=== PATIENT | female | born 1935 | race Caucasian/White ===

== ENCOUNTER 2016-10-28 09:03 | Emergency (ER) | payer MEDICARE, OTHER ==
[2016-10-28] MEDS ORDERED: NORMAL SALINE 1000 ML 1,000 ML IV ONE (10:27)
--- NOTE | 2016-10-28 10:31 | ER Document Report ---
ED General - General Chief Complaint: General Weakness Stated Complaint: DIFFICULTY BREATHING Time Seen by Provider: 10/28/16 10:08 Mode of Arrival: Medic Information source: [facility], [facility] Records Notes: This is an 81-year-old female with a history of hypertension and diabetes and chronic back pain who presents for subjective fevers and chills and generalized malaise. Of note she had a spinal stimulator placed on Monday (4 days ago) as a trial to assist with chronic back pain. She states that she was placed on prophylactic antibiotics 3 days prior to this. The day after her procedure she began to feel poorly. The next day, Monday, she experienced subjective fevers and chills. She is scheduled to have her spinal implant removed today however she felt too poorly to make it to the clinic. She denies chest pain or shortness of breath. No cough or congestion. Denies focal abdominal pain. Denies dysuria. - Related Data Allergies/Adverse Reactions: No Known Allergies Allergy (Verified 10/28/16 10:14) Past Medical History - Social History Smoking Status: Unknown if Ever Smoked Family History: Reviewed & Not Pertinent - Past Medical History Cardiac Medical History: Reports: Hx Hypertension - medicated Denies: Hx Coronary Artery Disease, Hx Heart Attack Pulmonary Medical History: Reports: Hx Pneumonia Denies: Hx Asthma, Hx Bronchitis, Hx COPD Neurological Medical History: Denies: Hx Cerebrovascular Accident, Hx Seizures Endocrine Medical History: Reports: Hx Diabetes Mellitus Type 2 GI Medical History: Denies: Hx Hepatitis, Hx Hiatal Hernia, Hx Ulcer Musculoskeltal Medical History: Reports Hx Arthritis - osteoarthritis Infectious Medical History: Denies: Hx Hepatitis Past Surgical History: Denies: Hx Hysterectomy, Hx Mastectomy, Hx Open Heart Surgery, Hx Pacemaker Review of Systems - Review of Systems Constitutional: See HPI EENT: No symptoms reported. denies: Sinus discharge, Throat pain Cardiovascular: No symptoms reported. denies: Chest pain, Palpitations Respiratory: No symptoms reported. denies: Cough, Hurts to breathe, Short of breath Gastrointestinal: See HPI, Nausea. denies: Abdominal pain, Diarrhea, Vomiting Genitourinary: No symptoms reported, See HPI. denies: Burning, Dysuria Musculoskeletal: See HPI Skin: No symptoms reported Hematologic/Lymphatic: No symptoms reported Neurological/Psychological: No symptoms reported Physical Exam - Vital signs Vitals: Resp Pulse Ox 22 H 97 10/28/16 09:18 10/28/16 09:18 - Notes Notes: PHYSICAL EXAMINATION: GENERAL: elderly female, alert and conversant, no acute distress but appears to not feel well HEAD: Atraumatic, normocephalic. EYES: Pupils equal round and reactive to light, extraocular movements intact, sclera anicteric, conjunctiva are normal. ENT: nares patent, oropharynx clear without exudates. Mucous membranes tachy NECK: Normal range of motion, supple without lymphadenopathy LUNGS: Breath sounds clear to auscultation bilaterally and equal. No wheezes rales or rhonchi. HEART: Regular rate and rhythm without murmurs ABDOMEN: Soft, obese, nontender, normoactive bowel sounds. No guarding, no rebound. No masses appreciated. EXTREMITIES: Normal range of motion NEUROLOGICAL: Cranial nerves grossly intact. Motor strength +5/5 bilateral upper and lower extremities. No gross sensory deficits appreciated PSYCH: Normal mood, normal affect. SKIN: Warm, Dry, normal turgor, no rashes or lesions noted. Spinal implant site c/d/i without erythema or induration Course - Re-evaluation Re-evalutation: 10/28/16 13:48 Patient states that she feels much better after the IV fluids. Her labs and exam are very reassuring. Dr. Pena of anesthesiology from [place] [facility] did evaluate the patient in the ER regarding her spinal stimulator and the leads were removed at the bedside. Patient has follow-up already arranged with the pain clinic. She is appropriate for discharge at this time. Strict return precautions were discussed. - Vital Signs Vital signs: Temp Pulse Resp BP Pulse Ox 98.1 F 78 20 124/75 96 10/28/16 14:09 10/28/16 14:09 10/28/16 14:09 10/28/16 14:09 10/28/16 14:09 - Laboratory Result Diagrams: 10/28/16 09:49 10/28/16 09:49 Laboratory results interpreted by me: 10/28/16 10/28/16 10/28/16 09:49 09:49 10:34 RBC 5.81 H Hgb 16.3 H Hct 49.6 H RDW 14.7 H Lymphocytes % 12.4 L Monocytes % 14.3 H BUN 23 H Est GFR ( Amer) 50 L Est GFR (Non-Af Amer) 41 L Glucose 186 H POC Glucose Urine Protein 100 H Urine Ascorbic Acid 40 H 10/28/16 10:41 RBC Hgb Hct RDW Lymphocytes % Monocytes % BUN Est GFR ( Amer) Est GFR (Non-Af Amer) Glucose POC Glucose 149 H Urine Protein Urine Ascorbic Acid - EKG Interpretation by Me Additional EKG results interpreted by me: 10/28/16 11:04 EKG at 1055 shows normal sinus rhythm with a rate of 89. There is poor R-wave progression. No ST segment elevation or depression. Discharge - Discharge Clinical Impression: Viral syndrome, Dehydration Condition: Stable Disposition: HOME, SELF-CARE Additional Instructions: Your blood work and exam today show no significant abnormalities. Rest this weekend and drink plenty of fluids. Follow up as scheduled next week with [facility]. Return to the ER for fever or any worsening symptoms or concerns. Referrals: MAICO VALLEJO MD [Primary Care Provider] - Follow up in 3-5 days
--- NOTE | 2016-10-28 11:03 | EKG REPORT ---
SEVERITY:- ABNORMAL ECG - SINUS RHYTHM PROBABLE LEFT ATRIAL ABNORMALITY LEFT ANTERIOR FASCICULAR BLOCK BORDERLINE R WAVE PROGRESSION, ANTERIOR LEADS : Confirmed by: Cindy Kaufman MD 28-Oct-2016 11:02:29
--- NOTE | 2016-10-28 11:05 | RADIOLOGY REPORT (SQ) ---
EXAM DESCRIPTION: CHEST PA/LAT COMPLETED DATE/TIME: 10/28/2016 10:52 am REASON FOR STUDY: fevers, malaise COMPARISON: March 2011 EXAM PARAMETERS: NUMBER OF VIEWS: two views TECHNIQUE: Digital Frontal and Lateral radiographic views of the chest acquired. RADIATION DOSE: NA LIMITATIONS: none FINDINGS: LUNGS AND PLEURA: No opacities, masses or pneumothorax. No pleural effusion. MEDIASTINUM AND HILAR STRUCTURES: No masses or contour abnormalities. HEART AND VASCULAR STRUCTURES: Heart normal size. No evidence for failure. BONES: No acute findings. HARDWARE: Stimulator device is identified in the lower thoracic spine which was not present on the pr evious study OTHER: No other significant finding. IMPRESSION: NO SIGNIFICANT RADIOGRAPHIC FINDING IN THE CHEST. TECHNICAL DOCUMENTATION: JOB ID: [id number] [employer]- All Rights Reserved
[2016-10-28 11:10] LABS: ABSOLUTE BASOPHILS # (AUTO) 0.1 10^3/uL (0.0-0.2); ABSOLUTE EOSINOPHILS # (AUTO) 0.1 10^3/uL (0.0-0.6); ABSOLUTE MONOCYTES (AUTO) 1.2 10^3/uL (0.1-1.4); ABSOLUTE NEUT (AUTO) 5.8 10^3/uL (1.7-8.2); ALANINE AMINOTRANSFERASE 40 U/L (9-52); ALBUMIN 3.8 g/dL (3.5-5.0); ALKALINE PHOSPHATASE 75 U/L (38-126); ANION GAP 14 (5-19); ASPARTATE AMINO TRANSFERASE 27 U/L (14-36); BASOPHILS % (AUTO) 0.7 % (0-2); BILIRUBIN,DIRECT 0.4 mg/dL (0.0-0.4); BILIRUBIN,TOTAL 0.8 mg/dL (0.2-1.3); BLOOD UREA NITROGEN 23 mg/dL (7-20); CALCIUM 10.2 mg/dL (8.4-10.2); CARBON DIOXIDE 25 mmol/L (22-30); CHLORIDE 99 mmol/L (98-107); CREATINE KINASE 37 U/L (30-135); CREATININE RESULT 1.25 mg/dL (0.52-1.25); EOSINOPHILS % (AUTO) 1.2 % (0-6); GLUCOSE 186 mg/dL (75-110); HEMATOCRIT 49.6 % (36.0-47.0); HEMOGLOBIN 16.3 g/dL (12.0-15.5); HGB HCT DIFFERENCE -0.7; LYMPHOCYTES % (AUTO) 12.4 % (13-45); MEAN CORPUSCULAR HEMOGLOBIN 28.1 pg (27.0-33.4); MEAN CORPUSCULAR HGB CONC 32.9 g/dL (32.0-36.0); MEAN CORPUSCULAR VOLUME 85 fl (80-97); MONOCYTES % (AUTO) 14.3 % (3-13); POTASSIUM 4.9 mmol/L (3.6-5.0); RED BLOOD COUNT 5.81 10^6/uL (3.72-5.28); RED CELL DISTRIBUTION WIDTH 14.7 % (11.5-14.0); SEGMENTED NEUTROPHILS % (AUTO) 71.4 % (42-78); SODIUM 137.5 mmol/L (137-145); TOTAL PROTEIN 6.3 g/dL (6.3-8.2); WHITE BLOOD COUNT 8.1 10^3/uL (4.0-10.5)
[2016-10-28 11:22] LABS: CREATINE KINASE MB 0.73 ng/mL (<4.55); TROPONIN I < 0.012 ng/mL
[2016-10-28 11:47] LABS: APPEARANCE,URINE CLEAR; BILIRUBIN,URINE NEGATIVE (NEGATIVE); GLUCOSE, URINE NEGATIVE (NEGATIVE); KETONES,URINE NEGATIVE (NEGATIVE); PROTEIN,URINE 100 mg/dL (NEGATIVE); URINE SPECIFIC GRAVITY 1.019; UROBILINOGEN,URINE NEGATIVE mg/dL (<2.0)
[2016-10-28 11:48] LABS: LEUKOCYTE ESTERASE,URINE NEGATIVE (NEGATIVE); NITRITE,URINE NEGATIVE (NEGATIVE)
[2016-10-28 12:09] LABS: RBC,URINE 0-1 /HPF
[2016-10-28 14:09] VITALS: BP 124/75
== END 2016-10-28 14:15 | disposition home or self-care (01) ==
LOC: ER 09:03
DX: B34.9 Viral infection, unspecified (principal); E86.0 Dehydration; R53.1 Weakness; R06.02 Shortness of breath; G89.29 Other chronic pain
CPT/HCPCS: 93005; 99285; 96360; 36415; 87040; 82553; 82962; 82550; 85025; 80053; 81001; 84484; 83605; 71020; 93010; J7030

== ENCOUNTER 2016-12-06 07:59 | Day surgery (SDC) | payer MEDICARE, OTHER ==
[2016-12-02 10:58] LABS: APPEARANCE,URINE CLEAR; BILIRUBIN,URINE NEGATIVE (NEGATIVE); GLUCOSE, URINE NEGATIVE (NEGATIVE); KETONES,URINE NEGATIVE (NEGATIVE); LEUKOCYTE ESTERASE,URINE TRACE (NEGATIVE); NITRITE,URINE NEGATIVE (NEGATIVE); PROTEIN,URINE NEGATIVE (NEGATIVE); URINE SPECIFIC GRAVITY 1.003; UROBILINOGEN,URINE NEGATIVE mg/dL (<2.0)
[2016-12-02 10:58] LABS: HEMATOCRIT 43.6 % (36.0-47.0); HEMOGLOBIN 14.1 g/dL (12.0-15.5); HGB HCT DIFFERENCE -1.3; MEAN CORPUSCULAR HEMOGLOBIN 27.5 pg (27.0-33.4); MEAN CORPUSCULAR HGB CONC 32.3 g/dL (32.0-36.0); MEAN CORPUSCULAR VOLUME 85 fl (80-97); RED BLOOD COUNT 5.11 10^6/uL (3.72-5.28); RED CELL DISTRIBUTION WIDTH 14.9 % (11.5-14.0); WHITE BLOOD COUNT 6.7 10^3/uL (4.0-10.5)
[2016-12-02 11:02] LABS: PARTIAL THROMBOPLASTIN TIME 33.1 SEC (23.5-35.8)
[2016-12-02 11:17] LABS: ANION GAP 9 (5-19); BLOOD UREA NITROGEN 17 mg/dL (7-20); CALCIUM 9.8 mg/dL (8.4-10.2); CARBON DIOXIDE 31 mmol/L (22-30); CHLORIDE 100 mmol/L (98-107); CREATININE RESULT 0.75 mg/dL (0.52-1.25); GLUCOSE 91 mg/dL (75-110); POTASSIUM 4.4 mmol/L (3.6-5.0); SODIUM 140.2 mmol/L (137-145)
--- NOTE | 2016-12-02 20:22 | EKG REPORT ---
SEVERITY:- ABNORMAL ECG - SINUS RHYTHM PROBABLE LEFT VENTRICULAR HYPERTROPHY : Confirmed by: Yazan Eaton MD 02-Dec-2016 20:21:11
[~2016-12-06 07:59] MED LIST: CEFAZOLIN 1 GM/D5W RTU 1 GM/50 ML RTUPB IV PRN; LACTATED RINGERS 1000 ML IV PRN; LIDOCAINE 0.5% INJ-PF (5 MG/ML) 50 ML SDV SUBCUT PRN
[2016-12-06] MEDS ORDERED: LIDOCAINE 1% INJ-PF (10 MG/ML) 30 ML SDV ONE ×2 (08:20→10:42)
[2016-12-06] MEDS ORDERED: SODIUM BICARBONATE 8.4% INJ 50 MEQ/50 ML DISP.SYRIN ONE (08:20)
[2016-12-06] MEDS ORDERED: BUPIVACAINE HCL 0.25% /EPINEPHRINE INJ/PF 30 ML SDV ONE (08:20)
[2016-12-06 09:22] LABS: POTASSIUM 3.8 mmol/L (3.6-5.0)
[2016-12-06] MEDS ORDERED: PROPOFOL INJ 200 MG/20 ML VIAL IV ONE (10:10)
[2016-12-06] MEDS ORDERED: MIDAZOLAM 2 MG/2 ML INJ ONE (10:10)
[2016-12-06] MEDS ORDERED: MORPHINE SULFATE 10 MG/ML INJ ONE (10:10)
[2016-12-06] MEDS ORDERED: ACETAMINOPHEN 100 ML IV ONE (10:11)
[2016-12-06] MEDS ORDERED: MEPERIDINE HCL/PF INJ 25 MG/1 ML DISP.SYRIN IV PRN (11:04)
[2016-12-06] MEDS ORDERED: FENTANYL CITRATE INJ/PF 100 MCG/2 ML AMPUL IV PRN ×3 (11:04)
[2016-12-06] MEDS ORDERED: PROMETHAZINE HCL INJ 25 MG/1 ML VIAL IV PRN ×2 (11:04)
[2016-12-06] MEDS ORDERED: DIPHENHYDRAMINE HCL 50 MG/ML VIAL IV PRN (11:04)
[2016-12-06] MEDS ORDERED: OXYCODONE-ACETAMINOPHEN 5-325 MG TABLET PO PRN ×3 (11:04→13:59)
[2016-12-06] MEDS ORDERED: MORPHINE SULFATE 10 MG/ML INJ IV PRN (11:04)
[2016-12-06] MEDS ORDERED: CEFAZOLIN INJ 1 GM VIAL ONE (11:55)
--- NOTE | 2016-12-06 12:49 | OPERATIVE REPORT E ---
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 OPERATION: Surgical implantation of right and left spinal cord stimulating electrodes under fluoroscopic guidance, implantation of programmable rechargeable pulse [employer] generator, fluoroscopy for needle placement, and complex programming. SURGEON: ANGUS PALOMO M.D. ANESTHESIA: MAC AUDIOLOGY ASSISTANT: Dr. Asmita Pena ESTIMATED BLOOD LOSS: 10 mL COMPLICATIONS: None. SPECIMENS REMOVED: None. INDICATIONS: Satisfactory response to outpatient trial of spinal cord stimulation. PROCEDURE: After obtaining informed consent, advising the patient of the risks and benefits including serious neurological injury, bleeding, and infection, paralysis, allergic reaction, , and failure to adequately treat pain as well as potential aggravate pain, she was taken to the operating room and placed comfortably in the prone position. MAC anesthesia was administered. Comfort was assessed visually and verbally. She was prepped with chlorhexidine x2 with appropriate drying time prior to draping. She was evaluated under fluoroscopy and at predetermined sites over the right gluteal region in the midline, incisions were made after local anesthetic was applied, 1% lidocaine with bicarb followed by 0.25% bupivacaine with epinephrine. Sharp and blunt dissection was performed in each region as necessary to create a suitable working space in the lumbar incision as well as a suitable pocket for the battery. Hemostasis was obtained with electrocautery as necessary. The leads were placed as follows. Beginning on the right side, a 6-inch curved Tuohy needle 14 gauge was advanced through a pre-anesthetized region with 1% Lidocaine entering the epidural space with loss resistance to saline technique at the T12-L1 interspace without evidence of heme, cerebrospinal fluid, or paresthesias. Electrode was then placed through this and advanced nicely in the midline. This was repeated on the left side of the second lead. Lateral views were taken to assure satisfactory placement and no damage to the *------*. The leads were then advanced up to the top of T8. Trial stimulation was then initiated and was satisfactory with good stimulation on all desired locations. Pursestrings of 0 [place] were placed around each needle followed by a distal anchor stitch of the same material. Beginning on the left, the Tuohy needle was removed with care being taken not to move the electrode. The electrode eventually did move approximately 1 *------* inferiorly. All pursestrings were secured. The anchors were secured. This procedure was then repeated on the right side. No movement of the electrode was noted at this location. Again, pursestrings were secured followed by the anchors. Both wounds were then copiously irrigated with Betadine-containing irrigation solution. Local anesthesia was applied for tunneling from the generator to the midline incision. The leads were then tunneled to the pocket and connected. Connectivity was tested and impedance was satisfactory. Again the wounds were irrigated and then closed with interrupted inverted 3-0 Vicryl mattress sutures. The skin was taped and glued over the battery pulse generator site and stapled and glued with Dermabond over the midline incision. Telfa dressings were placed over this followed by sponge Tegaderm's. The patient was then taken to the PACU for further postoperative care and monitoring. DICTATING PHYSICIAN: ANGUS PALOMO M.D. [id number] PHY#: [id number] ID: [id number] JOB#: [id number] ACCT: [id number] cc:ANGUS PALOMO M.D. >
[2016-12-06 13:54] VITALS: BP 136/78
[2016-12-06] MEDS ORDERED: ONDANSETRON HCL INJ/PF 4 MG/2 ML SDV IV PRN (14:00)
[2016-12-06] MEDS ORDERED: HYDROCODONE/ACETAMINOPHEN 5-325 MG TABLET PO PRN (14:13)
[2016-12-06] MEDS ORDERED: ONDANSETRON HCL INJ/PF 4 MG/2 ML SDV ONE (14:39)
[2016-12-06] MEDS ORDERED: METOCLOPRAMIDE HCL INJ/PF 10 MG/2 ML SDV ONE (14:39)
[2016-12-06] MEDS ORDERED: GLYCOPYRROLATE INJ 0.4 MG/2 ML VIAL ONE (14:39)
[2016-12-06] MEDS ORDERED: LIDOCAINE 2% INJ-PF (20 MG/ML) 10 ML AMPUL ONE (14:39)
--- NOTE | 2016-12-06 16:28 | RADIOLOGY REPORT (SQ) ---
EXAM DESCRIPTION: THORACOLUMBAR SPINE AP/LAT; NO CHG FLUORO COMPLETED DATE/TIME: 12/06/2016 2:51 pm; 12/06/2016 2:50 pm REASON FOR STUDY: SPINAL STIMULATOR ASSISTED WITH FLUORO IN OR M54.17 RADICULOPATHY, LUMBOSACRAL RE GION Z79.01 CENTRAL SERVICES TECH (CURRENT) USE OF ANTICOAGULANTS Z79.899 OTHER INTERMEDIATE (CURRENT) DRUG THERAP Y COMPARISON: None. FLUOROSCOPY TIME: 2.2 minutes Multiple cine fluoro images saved to PACS. TECHNIQUE: Intra-operative images acquired during surgical procedure to evaluate progress. NUMBER OF IMAGES: Cine fluoroscopic images. LIMITATIONS: None. FINDINGS: Imaging and fluoroscopy during neurostimulator electrode placement by Dr. Matta. Deana brannon see the operative report for further details. IMPRESSION: Intra procedural imaging and fluoro COMMENT: Quality ID [id number]: Final reports for procedures using fluoroscopy that document radiation exp osure indices, or exposure time and number of fluorographic images (if radiation exposure indices are not available) Please consult full operative report of the attending physician for description of the procedure. TECHNICAL DOCUMENTATION: JOB ID: [id number] [employer]- All Rights Reserved
--- NOTE | 2016-12-06 16:28 | RADIOLOGY REPORT (SQ) ---
EXAM DESCRIPTION: THORACOLUMBAR SPINE AP/LAT; NO CHG FLUORO COMPLETED DATE/TIME: 12/06/2016 2:51 pm; 12/06/2016 2:50 pm REASON FOR STUDY: SPINAL STIMULATOR ASSISTED WITH FLUORO IN OR M54.17 RADICULOPATHY, LUMBOSACRAL RE GION Z79.01 RESIN MIXER (CURRENT) USE OF ANTICOAGULANTS Z79.899 OTHER HALF-WAY (CURRENT) DRUG THERAP Y COMPARISON: None. FLUOROSCOPY TIME: 2.2 minutes Multiple cine fluoro images saved to PACS. TECHNIQUE: Intra-operative images acquired during surgical procedure to evaluate progress. NUMBER OF IMAGES: Cine fluoroscopic images. LIMITATIONS: None. FINDINGS: Imaging and fluoroscopy during neurostimulator electrode placement by Dr. Matta. Deana brannon see the operative report for further details. IMPRESSION: Intra procedural imaging and fluoro COMMENT: Quality ID 145: Final reports for procedures using fluoroscopy that document radiation exp osure indices, or exposure time and number of fluorographic images (if radiation exposure indices are not available) Please consult full operative report of the attending physician for description of the procedure. TECHNICAL DOCUMENTATION: JOB ID: [id number] [employer]- All Rights Reserved
== END 2016-12-06 13:35 | disposition home or self-care (01) ==
LOC: OROUT 07:59
PROVIDERS: ATTEND Pain Medicine Interventional Pain Medicine
PROC: 00HU3MZ Insertion of Neurostimulator Lead into Spinal Canal, Percutaneous Approach (ICD-10-PCS; 2016-12-06)
PROC: 0JH70MZ Insertion of Stimulator Generator into Back Subcutaneous Tissue and Fascia, Open Approach (ICD-10-PCS; principal; 2016-12-06 10:30)
DX: M54.17 Radiculopathy, lumbosacral region (principal); M43.17 Spondylolisthesis, lumbosacral region; I10 Essential (primary) hypertension; E11.9 Type 2 diabetes mellitus without complications; M19.90 Unspecified osteoarthritis, unspecified site; Z79.899 Other long term (current) drug therapy; Z79.01 Long term (current) use of anticoagulants; Z79.1 Long term (current) use of non-steroidal anti-inflammatories (NSAID)
CPT/HCPCS: 63685; 63650; 93005; 36415 ×2; 82962; 82947; 84132; 85027; 85610; 85730; 80048; 81001; 72080; 93010; C1820; C1778; C1787; J2250; J3490 ×4; J0690 ×2; J2765; J2270; J2405; J2704; J0131; 300

== ENCOUNTER → 2017-01-30 | Outpatient (CLI) | payer MEDICARE, OTHER ==
[2017-01-30 14:38] LABS: ANION GAP 14 (5-19); BLOOD UREA NITROGEN 17 mg/dL (7-20); CALCIUM 10.3 mg/dL (8.4-10.2); CARBON DIOXIDE 25 mmol/L (22-30); CHLORIDE 100 mmol/L (98-107); CREATININE RESULT 1.06 mg/dL (0.52-1.25); GLUCOSE 164 mg/dL (75-110); MAGNESIUM 2.1 mg/dL (1.6-2.3); POTASSIUM 4.5 mmol/L (3.6-5.0); SODIUM 138.7 mmol/L (137-145)
== END ==
LOC: OD 12:58
PROVIDERS: ATTEND Internal Medicine
DX: I10 Essential (primary) hypertension (principal); I48.91 Unspecified atrial fibrillation
CPT/HCPCS: 36415; 80048; 83735

== ENCOUNTER → 2017-02-09 | Outpatient (CLI) | payer MEDICARE, OTHER ==
[~2017-02-09] MED LIST changes: +AMINOPHYLLINE INJ/PF 250 MG/10 ML SDV IV ONE; -CEFAZOLIN 1 GM/D5W RTU 1 GM/50 ML RTUPB IV PRN; -LACTATED RINGERS 1000 ML IV PRN; -LIDOCAINE 0.5% INJ-PF (5 MG/ML) 50 ML SDV SUBCUT PRN; +REGADENOSON INJ 0.4 MG/5 ML DISP.SYRIN IV ONE
--- NOTE | 2017-02-09 15:03 | DRAGON STRESS TEST REPORT ---
INTRAVENOUS LEXISCAN CARDIOLITE STRESS TEST USING SINGLE PHOTON EMMISION COMPUTERIZED TOMOGRAPHIC. DATE OF PROCEDURE: February 09, 2017 INDICATION : Atrial fibrillation CARDIAC RISK FACTORS: Diabetes, hypertension, family history of CAD RESTING EKG: Sinus rhythm, no baseline ST-T wave changes STRESS EKG: No significant changes noted with LexiScan bolus REASON FOR TERMINATION: Protocol. PROCEDURE REPORT: Baseline heart rate 69 beats per minute with blood pressure of 128/59. Patient had no significant complaints. Heart rate at 2 minutes post bolus 83 with a blood pressure of 149/67. 3 minutes post bolus heart rate 75 with blood pressure of 136/68. No significant EKG changes were noted. Patient had no significant complaints during the procedure or postprocedure. Patient injected with Aminophyllin 75 mg at 3 minutes or later after Lexiscan bolus. CONCLUSIONS: Normal EKG and hemodynamic response to IV LexiScan. NUCLEAR DATA: At rest the patient was given 14.68 millicuries of technetium 99 sestamibi injected intravenously. As per protocol rest gated SPECT images were obtained. Subsequently the patient was given intravenous LexiScan at a dose of 0.4 mg in 5 mL intravenously, followed by flush with normal saline. Subsequently the stress dose of 42.8 millicuries of technetium 99 sestamibi was injected intravenously. As per protocol stress gated images were obtained. NUCLEAR INTERPRETATION: Both raw and processed data were used for interpretation. Visual, qualitative, computer-generated quantitative data was used. There was good myocardial uptake of technetium compound. Motion artifact and soft tissue attenuations were noted. Increased visceral uptake was noted. No definitive areas of transient perfusion defect noted. No definitive areas of fixed perfusion defect or scars noted. EKG gated imaging showed LV EF at 61 %, rest and stress gated EF similar visually. T. I D. ratio was 1.14. Lung heart ratio noted to be within normal limits 0.28. No significant extracardiac and abnormal radiotracer activities were noted. RV free wall uptake was noted to be WNL. IMPRESSION: Also refer to comments under nuclear interpretation. Also test results needs to be interpreted in the context of pretest probability. 1. There is no definitive scintigraphic evidence of LexiScan induced myocardial ischemia. 2. There is no definitive scintigraphic evidence of myocardial infarction/scar. 3. EKG gated imaging shows left ventricular ejection fraction of approximately 61 %. 4. Clinical correlation requested as occasionally single vessel disease or balanced ischemia could be missed. In approximately 10% of the cases Lexiscan may not cause adequate vasodilatory stress. RECOMMENDATIONS: Aggressive risk factor modification, medical therapy. Clinical correlation with echocardiogram derived ejection fraction. Inability to exercise by itself can lead to increased cardiovascular event risks. Consider cardiology consultation and or follow-up if clinically indicated. I AM AVAILABLE FOR CARDIOLOGY CONSULTATION AND FOLLOWUP IF REQUESTED BY PMD Jacqueline Hernandez M.D., KIRSTIE Pitch Worker global human resources director, Board certified in cardiovascular diseases, Nuclear cardiology, Echocardiography Cardiac CT and cardiac MRI Ph. [phone] [facility]
== END ==
LOC: RAD 07:50
PROVIDERS: ATTEND Internal Medicine Cardiovascular Disease
DX: I48.2 Chronic atrial fibrillation (principal); I10 Essential (primary) hypertension; E11.9 Type 2 diabetes mellitus without complications; Z82.49 Family history of ischemic heart disease and other diseases of the circulatory system
CPT/HCPCS: 93017; 78452; A9500; J2785; J0280; Q9969

== ENCOUNTER 2017-04-14 09:40 | Emergency (ER) | payer MEDICARE, OTHER ==
--- NOTE | 2017-04-14 10:04 | ER Document Report ---
ED Medical Screen (RME) - General Chief Complaint: Chest Pain Stated Complaint: CHEST PAIN Time Seen by Provider: 04/14/17 09:55 Notes: Patient is here to be seen because she thinks she is in atrial fibrillation again. She has a history of recent diagnosis of atrial fibrillation for which she is on Eliquis and Toprol-XL. Today, she says she is feeling sweaty and clammy and having some chest pressure. Denies any chest pain. Denies any nausea or vomiting. No recent illness. No fevers. PMH: Hypertension, no other heart disease. TRAVEL OUTSIDE OF THE [place] IN LAST 30 DAYS: No - Related Data Allergies/Adverse Reactions: No Known Allergies Allergy (Verified 04/14/17 09:53) Past Medical History - Social History Chew tobacco use (# tins/day): No Frequency of alcohol use: None Drug Abuse: None Family history: Reviewed & Not Pertinent - Past Medical History Cardiac Medical History: Reports: Hx Hypertension Denies: Hx Coronary Artery Disease, Hx Heart Attack Pulmonary Medical History: Denies: Hx Asthma, Hx Bronchitis, Hx COPD, Hx Pneumonia Neurological Medical History: Denies: Hx Cerebrovascular Accident, Hx Seizures Endocrine Medical History: Reports: Hx Diabetes Mellitus Type 2 Renal/ Medical History: Denies: Hx Peritoneal Dialysis GI Medical History: Denies: Hx Hepatitis, Hx Hiatal Hernia, Hx Ulcer Musculoskeltal Medical History: Reports Hx Arthritis - RIGHT BIG TOE & HANDS, POSS rheumatoid Infectious Medical History: Denies: Hx Hepatitis Past Surgical History: Reports: Hx Appendectomy, Hx Cholecystectomy. Denies: Hx Hysterectomy, Hx Mastectomy, Hx Open Heart Surgery, Hx Pacemaker - Immunizations Hx Diphtheria, Pertussis, Tetanus Vaccination: Yes Physical Exam - Vital signs Vitals: Temp Pulse Resp BP Pulse Ox 97.6 F 92 20 119/67 97 04/14/17 09:52 04/14/17 09:52 04/14/17 09:52 04/14/17 09:52 04/14/17 09:52 Course - Vital Signs Vital signs: Temp Pulse Resp BP Pulse Ox 97.6 F 92 20 119/67 97 04/14/17 09:52 04/14/17 09:52 04/14/17 09:52 04/14/17 09:52 04/14/17 09:52
--- NOTE | 2017-04-14 10:27 | ER Document Report ---
ED Cardiac - General Chief Complaint: Chest Pain Stated Complaint: CHEST PAIN Time Seen by Provider: 04/14/17 09:55 Notes: This is a 81-year-old female was not feeling well this morning. Randolph her heart racing. History of atrial fibrillation. On Eliquis. Taking metoprolol 50 mg of the extended release version a day. Followed by Dr. Santiago with cardiology. Randolph a little clammy. Did her blood sugar test and it was slightly elevated at 180. She states that normally is quite low in the low 100s. Denies any dysuria or discomfort. Denies any chest pain, shortness of breath, abdominal pain or other symptoms at this time. Actually she states that she feels much better and that her heart is not racing at this time. TRAVEL OUTSIDE OF THE [place] IN LAST 30 DAYS: No - HPI Patient complains to provider of: Palpitations Use of: denies: Alcohol, Amphetamines, Bath salts, Caffeine, Cocaine, Decongestants, Other Was the onset of pain: Sudden Is the pain a: Chronic problem Chest pain location: No: Substernal, Axillary, Back, Pleuritic, Under breast, Other Quality of pain: None Chest pain radiation location: denies: Left jaw, Left arm, Left shoulder, Right jaw, Right arm, Right shoulder, Back, Neck, None Severity now: None Severity at worst: Mild Pain level currently: 0 Cardiac risk factors: Diabetes, Hypertension Associated symptoms: None Exacerbated by: Denies - Related Data Allergies/Adverse Reactions: No Known Allergies Allergy (Verified 04/14/17 09:53) Home Medications: Current Home Medications Apixaban [Eliquis 5 mg Tablet] 5 mg PO DAILY 04/14/17 [History] Celecoxib [Celebrex 200 mg Capsule] 200 mg PO DAILY 04/14/17 [History] Diazepam 5 mg PO PRN PRN 04/14/17 [History] Duloxetine HCl [Cymbalta] 30 mg PO DAILY 04/14/17 [History] Glimepiride 4 mg PO DAILY 04/14/17 [History] Hydrocodone Bit/Acetaminophen [Xodol 7.5-300 mg Tablet] 7.5 mg PO DAILY [History] Metoprolol Succinate [Toprol Xl 50 mg Tab.sr] 50 mg PO DAILY 04/14/17 [History] Naloxegol Oxalate [Movantik 25 mg Tablet] 25 mg PO DAILY 04/14/17 [History] Omeprazole 20 mg PO DAILY 04/14/17 [History] Valsartan/Hydrochlorothiazide [Valsartan-Hctz 160-12.5 mg Tab] 160 mg PO DAILY 04/14/17 [History] Past Medical History - General Information source: Patient - Social History Smoking Status: Never Smoker Chew tobacco use (# tins/day): No Frequency of alcohol use: None Drug Abuse: None Lives with: Family Family History: Reviewed & Not Pertinent Patient has suicidal ideation: No Patient has homicidal ideation: No - Past Medical History Cardiac Medical History: Reports: Hx Hypertension Denies: Hx Coronary Artery Disease, Hx Heart Attack Pulmonary Medical History: Denies: Hx Asthma, Hx Bronchitis, Hx COPD, Hx Pneumonia Neurological Medical History: Denies: Hx Cerebrovascular Accident, Hx Seizures Endocrine Medical History: Reports: Hx Diabetes Mellitus Type 2 Renal/ Medical History: Denies: Hx Peritoneal Dialysis GI Medical History: Denies: Hx Hepatitis, Hx Hiatal Hernia, Hx Ulcer Musculoskeltal Medical History: Reports Hx Arthritis - RIGHT BIG TOE & HANDS, POSS rheumatoid Infectious Medical History: Denies: Hx Hepatitis Past Surgical History: Reports: Hx Appendectomy, Hx Cholecystectomy. Denies: Hx Hysterectomy, Hx Mastectomy, Hx Open Heart Surgery, Hx Pacemaker - Immunizations Hx Diphtheria, Pertussis, Tetanus Vaccination: Yes Hx Pneumococcal Vaccination: 05/22/11 Review of Systems - Review of Systems Constitutional: No symptoms reported EENT: No symptoms reported Cardiovascular: Palpitations Respiratory: No symptoms reported Gastrointestinal: No symptoms reported Genitourinary: No symptoms reported Female Genitourinary: No symptoms reported Musculoskeletal: No symptoms reported Skin: No symptoms reported Hematologic/Lymphatic: No symptoms reported Neurological/Psychological: No symptoms reported Physical Exam - Vital signs Vitals: Temp Pulse Resp BP Pulse Ox 97.6 F 92 20 119/67 97 04/14/17 09:52 04/14/17 09:52 04/14/17 09:52 04/14/17 09:52 04/14/17 09:52 Interpretation: Normal - General General appearance: Appears well, Alert - HEENT Head: Normocephalic, Atraumatic Eyes: Normal Pupils: PERRL - Respiratory Respiratory status: No respiratory distress Chest status: Nontender Breath sounds: Normal Chest palpation: Normal - Cardiovascular Rhythm: Regular Heart sounds: Normal auscultation Murmur: No - Abdominal Inspection: Normal Distension: No distension Bowel sounds: Normal Tenderness: Nontender Organomegaly: No organomegaly - Back Back: Normal, Nontender - Extremities General upper extremity: Normal inspection, Nontender, Normal color, Normal ROM , Normal temperature General lower extremity: Normal inspection, Nontender, Normal color, Normal ROM , Normal temperature, Normal weight bearing. No: Shannon's sign - Neurological Neuro grossly intact: Yes Cognition: Normal Orientation: AAOx4 Jen Coma Scale Eye Opening: Spontaneous Jen Coma Scale Verbal: Oriented Jen Coma Scale Motor: Obeys Commands Jen Coma Scale Total: 15 Speech: Normal Motor strength normal: LUE, RUE, LLE, RLE Sensory: Normal - Psychological Associated symptoms: Normal affect, Normal mood - Skin Skin Temperature: Warm Skin Moisture: Dry Skin Color: Normal Course - Re-evaluation Re-evalutation: 04/14/17 14:32 Patient has a slightly elevated BNP. Denies any significant shortness of breath , chest pain, lower extremities edema, orthopnea or dyspnea on exertion. Called patient's drilling foreman. Give the nurse at the drilling foreman's office the information that workup was completed today. Will start patient on some Lasix. Advised that if patient begins to have any worsening symptoms she should return immediately. We will hold off on making any other medication changes other than 20 mg of Lasix at this time. 04/14/17 14:32 - Vital Signs Vital signs: Temp Pulse Resp BP Pulse Ox 97.6 F 92 22 H 142/77 H 92 04/14/17 09:52 04/14/17 09:52 04/14/17 13:16 04/14/17 13:16 04/14/17 13:16 - Laboratory Result Diagrams: 04/14/17 10:15 04/14/17 12:20 Laboratory results interpreted by me: 04/14/17 04/14/17 04/14/17 10:15 12:08 12:20 RBC 5.39 H RDW 14.7 H Carbon Dioxide 32 H BUN 23 H Glucose 60 L NT-Pro-B Natriuret Pep Total Protein 5.8 L Ur Leukocyte Esterase MODERATE H Urine Ascorbic Acid 40 H 04/14/17 12:20 RBC RDW Carbon Dioxide BUN Glucose NT-Pro-B Natriuret Pep 1220 H Total Protein Ur Leukocyte Esterase Urine Ascorbic Acid - EKG Interpretation by [facility] EKG shows normal: Intervals, QRS Complexes Rhythm: A.Fib, PVC's [place]/QRS: Left axis deviation Voltage: Consistant with LVH Discharge - Discharge Clinical Impression: Atrial fibrillation Qualifiers: Atrial fibrillation type: unspecified Qualified Code(s): I48.91 - Unspecified atrial fibrillation Congestive heart failure Qualifiers: Congestive heart failure type: unspecified congestive heart failure type Congestive heart failure chronicity: unspecified congestive heart failure chronicity Qualified Code(s): I50.9 - Heart failure, unspecified Disposition: HOME, SELF-CARE Additional Instructions: Atrial Fibrillation Atrial fibrillation is an abnormal heart rhythm, caused by irregular electrical circuits in the upper heart chamber. It can be caused by heart valve disease, hardening of the arteries, or metabolic problems such as thyroid disease, or may occur without a clear cause. Atrial fibrillation may occur only occasionally, or may be chronic. Atrial fibrillation often results in a very fast heart rate, with palpitations, lightheadedness, and shortness of breath. Treatment is to slow the abnormally fast rate, and to convert the rhythm back to normal, if possible. Many patients stay in atrial fibrillation for years without symptoms or complications. Your doctor will decide whether you can be converted back to a normal heart rhythm. Contact the doctor or emergency medical system at once if you develop chest pain, shortness of breath, or severe lightheadedness, or if you develop any disturbance of consciousness, problems with speech, or localized weakness. Please return immediately if you develop any worsening symptoms or concerns. Developed chest pain, shortness of breath, tachycardia which means her heart is racing fast, fever, chills, sweats or anything else please return Prescriptions: Furosemide [Lasix 20 mg Tablet] 20 mg PO QAM #30 tablet Potassium Chloride 10 meq PO DAILY 30 Days #30 tablet.er Referrals: MAICO VALLEJO MD [Primary Care Provider] - Follow up as needed
[2017-04-14 10:37] LABS: ABSOLUTE BASOPHILS # (AUTO) 0.1 10^3/uL (0.0-0.2); ABSOLUTE EOSINOPHILS # (AUTO) 0.2 10^3/uL (0.0-0.6); ABSOLUTE LYMPHOCYTES (AUTO) 2.1 10^3/uL (0.5-4.7); ABSOLUTE MONOCYTES (AUTO) 0.8 10^3/uL (0.1-1.4); ABSOLUTE NEUT (AUTO) 6.4 10^3/uL (1.7-8.2); BASOPHILS % (AUTO) 1.1 % (0-2); EOSINOPHILS % (AUTO) 2.1 % (0-6); HEMATOCRIT 45.7 % (36.0-47.0); HEMOGLOBIN 15.2 g/dL (12.0-15.5); HGB HCT DIFFERENCE -0.1; LYMPHOCYTES % (AUTO) 21.9 % (13-45); MEAN CORPUSCULAR HEMOGLOBIN 28.2 pg (27.0-33.4); MEAN CORPUSCULAR HGB CONC 33.2 g/dL (32.0-36.0); MEAN CORPUSCULAR VOLUME 85 fl (80-97); MONOCYTES % (AUTO) 8.3 % (3-13); RED BLOOD COUNT 5.39 10^6/uL (3.72-5.28); RED CELL DISTRIBUTION WIDTH 14.7 % (11.5-14.0); SEGMENTED NEUTROPHILS % (AUTO) 66.6 % (42-78); WHITE BLOOD COUNT 9.6 10^3/uL (4.0-10.5)
--- NOTE | 2017-04-14 10:47 | RADIOLOGY REPORT (SQ) ---
EXAM DESCRIPTION: CHEST SINGLE VIEW COMPLETED DATE/TIME: 04/14/2017 10:32 am REASON FOR STUDY: Chest pressure and irregular heartbeat COMPARISON: October 2016 EXAM PARAMETERS: NUMBER OF VIEWS: One view. TECHNIQUE: Single frontal radiographic view of the chest acquired. RADIATION DOSE: NA LIMITATIONS: None. FINDINGS: LUNGS AND PLEURA: No opacities, masses or pneumothorax. No pleural effusion. MEDIASTINUM AND HILAR STRUCTURES: No masses. Contour normal. HEART AND VASCULAR STRUCTURES: Heart normal in size. Normal vasculature. BONES: No acute findings. HARDWARE: Electrodes related to a dorsal column stimulator are identified projected at the level of t he mid thoracic spine. OTHER: No other significant finding. IMPRESSION: NO ACUTE RADIOGRAPHIC FINDING IN THE CHEST. TECHNICAL DOCUMENTATION: JOB ID: [id number] [employer]- All Rights Reserved
[2017-04-14 12:56] LABS: ALANINE AMINOTRANSFERASE 42 U/L (9-52); ALKALINE PHOSPHATASE 93 U/L (38-126); ANION GAP 11 (5-19); ASPARTATE AMINO TRANSFERASE 20 U/L (14-36); BILIRUBIN,DIRECT 0.3 mg/dL (0.0-0.4); BILIRUBIN,TOTAL 0.4 mg/dL (0.2-1.3); BLOOD UREA NITROGEN 23 mg/dL (7-20); CALCIUM 9.6 mg/dL (8.4-10.2); CARBON DIOXIDE 32 mmol/L (22-30); CHLORIDE 101 mmol/L (98-107); CREATINE KINASE 38 U/L (30-135); CREATININE RESULT 0.85 mg/dL (0.52-1.25); GLUCOSE 60 mg/dL (75-110); POTASSIUM 3.8 mmol/L (3.6-5.0); SODIUM 143.9 mmol/L (137-145); TOTAL PROTEIN 5.8 g/dL (6.3-8.2)
[2017-04-14 13:06] LABS: CREATINE KINASE MB 1.58 ng/mL (<4.55); TROPONIN I < 0.012 ng/mL
[2017-04-14 13:14] LABS: APPEARANCE,URINE SLIGHTLY-CLOUDY; BILIRUBIN,URINE NEGATIVE (NEGATIVE); GLUCOSE, URINE NEGATIVE (NEGATIVE); KETONES,URINE NEGATIVE (NEGATIVE); LEUKOCYTE ESTERASE,URINE MODERATE (NEGATIVE); NITRITE,URINE NEGATIVE (NEGATIVE); PROTEIN,URINE NEGATIVE (NEGATIVE); URINE SPECIFIC GRAVITY 1.023; UROBILINOGEN,URINE NEGATIVE mg/dL (<2.0)
[2017-04-14] MEDS ORDERED: FUROSEMIDE 20 MG TABLET PO ONE (14:31)
--- NOTE | 2017-04-14 14:41 | EKG REPORT ---
SEVERITY:- ABNORMAL ECG - ATRIAL FIBRILLATION, V-RATE 75-125 VENTRICULAR PREMATURE COMPLEX LEFT ANTERIOR FASCICULAR BLOCK CONSIDER LEFT VENTRICULAR HYPERTROPHY : Confirmed by: Cindy Kaufman MD 14-Apr-2017 14:41:35
[2017-04-14 15:49] VITALS: BP 137/84
== END 2017-04-14 15:52 | disposition home or self-care (01) ==
LOC: ER 09:40
DX: I50.9 Heart failure, unspecified (principal); I48.91 Unspecified atrial fibrillation; I49.3 Ventricular premature depolarization; R07.9 Chest pain, unspecified; R00.2 Palpitations; Z79.01 Long term (current) use of anticoagulants; Z79.899 Other long term (current) drug therapy
CPT/HCPCS: 93005; 99285; 36415; 82553; 82550; 85025; 80053; 81001; 84484; 83880; 71010; 93010; A9270

== ENCOUNTER 2018-04-07 07:38 | Inpatient (IN) | payer MEDICARE, OTHER ==
[2018-04-07] MEDS ORDERED: DIPHENHYDRAMINE HCL 50 MG/ML VIAL IV ONE (08:03)
[2018-04-07] MEDS ORDERED: FAMOTIDINE INJ/PF 20 MG/2 ML SDV IV ONE (08:03)
[2018-04-07] MEDS ORDERED: METHYLPREDNISOLONE INJ 125 MG/2 ML SDV IV ONE (08:03)
--- NOTE | 2018-04-07 08:08 | ER Document Report ---
ED General - General Chief Complaint: Allergic Reaction Stated Complaint: POSSIBLE ALLERGIC REACTION Time Seen by Provider: 04/07/18 07:53 TRAVEL OUTSIDE OF THE [place] IN LAST 30 DAYS: No - HPI Patient complains to provider of: Allergic reaction Notes: Patient coming in with diffuse hives swelling around her bilateral orbits ongoing for greater than 24 hours. Patient states last night took 50 mg of Benadryl with minimal relief came into the ER for further evaluation. Patient with recent knee surgery on new medications Mobic oxycodone. Patient states a history of hypertension diabetes atrial fibrillation. Patient is currently on Eliquis. Patient denies any shortness of breath and is speaking to me in complete sentences at this time. Patient also is controlling her oral secretions with no drooling. Next be no obvious distress. Patient otherwise denies any new medications soaps activities pets - Related Data Allergies/Adverse Reactions: Sulfa (Sulfonamide Antibiotics) Allergy (Verified 04/07/18 08:12) Past Medical History - Social History Smoking Status: Unknown if Ever Smoked Family History: Reviewed & Not Pertinent - Past Medical History Cardiac Medical History: Reports: Hx Hypertension Denies: Hx Coronary Artery Disease, Hx Heart Attack Pulmonary Medical History: Denies: Hx Asthma, Hx Bronchitis, Hx COPD, Hx Pneumonia Neurological Medical History: Denies: Hx Cerebrovascular Accident, Hx Seizures Endocrine Medical History: Reports: Hx Diabetes Mellitus Type 2 Renal/ Medical History: Denies: Hx Peritoneal Dialysis GI Medical History: Denies: Hx Hepatitis, Hx Hiatal Hernia, Hx Ulcer Musculoskeletal Medical History: Reports Hx Arthritis - RIGHT BIG TOE & HANDS, POSS rheumatoid Infectious Medical History: Denies: Hx Hepatitis Past Surgical History: Reports: Hx Appendectomy, Hx Cholecystectomy. Denies: Hx Hysterectomy, Hx Mastectomy, Hx Open Heart Surgery, Hx Pacemaker - Immunizations Hx Diphtheria, Pertussis, Tetanus Vaccination: Yes Hx Pneumococcal Vaccination: 05/22/11 Review of Systems - Review of Systems Constitutional: No symptoms reported EENT: No symptoms reported Cardiovascular: No symptoms reported Respiratory: No symptoms reported Gastrointestinal: No symptoms reported Genitourinary: No symptoms reported Female Genitourinary: No symptoms reported Musculoskeletal: No symptoms reported Skin: Rash Hematologic/Lymphatic: No symptoms reported Neurological/Psychological: No symptoms reported -: Yes All other systems reviewed and negative Physical Exam - Vital signs Vitals: Temp Pulse Resp BP Pulse Ox 98.2 F 99 18 98/55 L 96 04/07/18 07:48 04/07/18 07:48 04/07/18 07:48 04/07/18 07:48 04/07/18 07:48 Interpretation: Tachycardic - General General appearance: Appears well, Alert - HEENT Head: Normocephalic, Atraumatic Eyes: Other - Swelling around bilateral orbits Conjunctiva: Normal Cornea: Normal Extraocular movements intact: Yes Eyelashes: Normal Pupils: PERRL - Respiratory Respiratory status: No respiratory distress Chest status: Nontender Breath sounds: Normal Chest palpation: Normal - Cardiovascular Rhythm: Irregularly irregular, Tachycardia Heart sounds: Normal auscultation Murmur: No - Abdominal Inspection: Normal Distension: No distension Bowel sounds: Normal Tenderness: Nontender Organomegaly: No organomegaly - Back Back: Normal, Nontender - Extremities General upper extremity: Normal inspection, Nontender, Normal color, Normal ROM , Normal temperature General lower extremity: Normal inspection, Nontender, Normal color, Normal ROM , Normal temperature, Normal weight bearing. No: Shannon's sign - Neurological Neuro grossly intact: Yes Cognition: Normal Orientation: AAOx4 Jen Coma Scale Eye Opening: Spontaneous Jen Coma Scale Verbal: Oriented [place] Coma Scale Motor: Obeys Commands Jen Coma Scale Total: 15 Speech: Normal Motor strength normal: LUE, RUE, LLE, RLE Sensory: Normal - Psychological Associated symptoms: Normal affect, Normal mood - Skin Skin Temperature: Warm Skin Moisture: Dry Skin Color: Normal Notes: Patient with diffuse hives in the inner thigh and inguinal region on the anterior of the abdomen bilateral upper extremities swelling around both orbits ocular motion intact. Course - Re-evaluation Re-evalutation: 04/07/18 08:08 Patient's physical examination consistent with an acute allergic reaction at this time. Patient otherwise looks to be stable and no need for epinephrine at this time. Will continue with Benadryl Solu-Medrol and Pepcid and monitor the patient. 04/07/18 14:46 Place patient on the monitor showed A. fib RVR. Patient had an EKG performed showed heart rate in the 40s. This showed atrial fibrillation. Further evaluation the patient states that she is not taking any of her medications except for Mobic and oxycodone since the knee surgery on March 19. Patient was given an IV dose in order dose of metoprolol with some improvement of her heart rate however continued to be fluctuating between 100 230. Patient's oxygenation also decreased in the upper 80s. Chest x-ray was performed showing no signs of overt CHF. Because patient has been off her medications for some time and waxing and waning of vital signs decision was made to admit the patient to the hospital service of the started back on her home medications and make sure the patient otherwise states stable. Patient agrees this plan at this time discussed with Dr. English hospitalist service will admit the patient diffuse hives have improved after menstruation of Solu-Medrol Benadryl Pepcid 04/07/18 14:47 - Vital Signs Vital signs: Temp Pulse Resp BP Pulse Ox 98.2 F 99 18 98/55 L 96 04/07/18 13:25 04/07/18 13:25 04/07/18 13:25 04/07/18 13:25 04/07/18 13:25 - Laboratory Result Diagrams: 04/07/18 08:05 04/07/18 08:05 Laboratory results interpreted by me: 04/07/18 04/07/18 08:05 08:05 WBC 13.8 H MCH 26.5 L RDW 17.0 H Plt Count 488 H Absolute Neutrophils 10.7 H Glucose 198 H Critical Care Note - Critical Care Note Total time excluding time spent on procedures (mins): 35 Comments: Multiple evaluation A. fib RVR and acute allergic reaction Discharge - Discharge Clinical Impression: Atrial fibrillation with RVR, Acute urticaria, History of CHF (congestive heart failure), History of diabetes Condition: Good Disposition: ADMITTED INPATIENT Admitting Provider: Kristen English Unit Admitted: [facility]
[2018-04-07 08:13] LABS: ABSOLUTE BASOPHILS # (AUTO) 0.1 10^3/uL (0.0-0.2); ABSOLUTE EOSINOPHILS # (AUTO) 0.1 10^3/uL (0.0-0.6); ABSOLUTE LYMPHOCYTES (AUTO) 1.9 10^3/uL (0.5-4.7); ABSOLUTE NEUT (AUTO) 10.7 10^3/uL (1.7-8.2); BASOPHILS % (AUTO) 0.6 % (0-2); EOSINOPHILS % (AUTO) 0.5 % (0-6); HEMATOCRIT 38.5 % (36.0-47.0); HEMOGLOBIN 12.4 g/dL (12.0-15.5); LYMPHOCYTES % (AUTO) 13.7 % (13-45); MEAN CORPUSCULAR HEMOGLOBIN 26.5 pg (27.0-33.4); MEAN CORPUSCULAR HGB CONC 32.2 g/dL (32.0-36.0); MEAN CORPUSCULAR VOLUME 82 fl (80-97); MONOCYTES % (AUTO) 7.4 % (3-13); PLATELET COUNT 488 10^3/uL (150-450); RED BLOOD COUNT 4.68 10^6/uL (3.72-5.28); SEGMENTED NEUTROPHILS % (AUTO) 77.8 % (42-78); TOTAL CELLS COUNTED % (AUTO) 100 %; WHITE BLOOD COUNT 13.8 10^3/uL (4.0-10.5)
[2018-04-07 08:32] LABS: ANION GAP 13 (5-19); BLOOD UREA NITROGEN 15 mg/dL (7-20); CARBON DIOXIDE 25 mmol/L (22-30); CHLORIDE 102 mmol/L (98-107); GLUCOSE 198 mg/dL (75-110); POTASSIUM 4.3 mmol/L (3.6-5.0); SODIUM 140.4 mmol/L (137-145)
[2018-04-07] MEDS ORDERED: METOPROLOL TARTRATE PF/INJ 5 MG/5 ML SDV IV ONE (08:58)
[2018-04-07] MEDS ORDERED: METOPROLOL TARTRATE 25 MG TABLET PO ONE (08:59)
--- NOTE | 2018-04-07 09:57 | EKG REPORT ---
SEVERITY:- ABNORMAL ECG - ATRIAL FIBRILLATION LEFT ANTERIOR FASCICULAR BLOCK LOW VOLTAGE IN FRONTAL LEADS PROBABLE LVH WITH SECONDARY REPOL ABNRM ST DEPRESSION, PROBABLY RATE RELATED BORDERLINE PROLONGED QT INTERVAL : Confirmed by: Jacqueline Hernandez 07-Apr-2018 09:56:20
--- NOTE | 2018-04-07 10:23 | RADIOLOGY REPORT (SQ) ---
EXAM DESCRIPTION: CHEST 2 VIEWS COMPLETED DATE/TIME: 04/07/2018 10:15 am REASON FOR STUDY: sob COMPARISON: 04/14/2017 EXAM PARAMETERS: NUMBER OF VIEWS: two views TECHNIQUE: Digital Frontal and Lateral radiographic views of the chest acquired. RADIATION DOSE: NA LIMITATIONS: none FINDINGS: LUNGS AND PLEURA: No opacities, masses or pneumothorax. No pleural effusion. MEDIASTINUM AND HILAR STRUCTURES: No masses or contour abnormalities. HEART AND VASCULAR STRUCTURES: Heart normal size. No evidence for failure. BONES: No acute findings. HARDWARE: None in the chest. OTHER: Spinal stimulator leads project over the midthoracic spine. IMPRESSION: No acute abnormality of the lungs. No focal airspace opacity. TECHNICAL DOCUMENTATION: JOB ID: [id number] [employer] All Rights Reserved Reading location - IP/workstation name: [email or web address]
[2018-04-07] MEDS ORDERED: METOPROLOL SUCCINATE 50 MG TAB.SR.24H PO SCH (11:15)
[2018-04-07] MEDS ORDERED: FLECAINIDE ACETATE 100 MG TABLET PO SCH ×3 (11:29→22:00)
[2018-04-07] MEDS ORDERED: METOPROLOL TARTRATE 25 MG TABLET PO SCH (11:30)
[2018-04-07] MEDS: METOPROLOL TARTRATE 25 MG TABLET PO SCH ×2 (12:03→21:50)
[2018-04-07] MEDS ORDERED: ACETAMINOPHEN 325 MG TABLET PO PRN (12:14)
[2018-04-07] MEDS ORDERED: APIXABAN 5 MG TABLET PO SCH (12:30)
[2018-04-07] MEDS ORDERED: HYDROCODONE/ACETAMINOPHEN 7.5-325 MG TABLET PO PRN (14:48)
[2018-04-07] MEDS ORDERED: GLUCAGON,HUMAN RECOMB 1 MG INJ IM PRN (14:51)
[2018-04-07] MEDS ORDERED: DEXTROSE 50%-WATER 25 GM/50 ML DISP.SYRIN IV PRN ×2 (14:51)
[2018-04-07] MEDS ORDERED: DEXTROSE 40% GEL 15 GM TUBE PO PRN ×2 (14:51)
[2018-04-07] MEDS: CETIRIZINE 10 MG TABLET PO SCH (14:57)
[2018-04-07] MEDS ORDERED: OXYCODONE HCL IR 5 MG TABLET PO SCH (16:00)
[2018-04-07] MEDS ORDERED: OXYCODONE HCL IR 5 MG TABLET PO PRN (16:24)
--- NOTE | 2018-04-07 17:46 | HISTORY AND PHYSICAL E ---
History and Physical NAME: ARMOND GODINEZ : 1935 AGE: 82Y ADMITTED: 04/07/2018 ROOM: 318 PRIMARY CARE PROVIDER: Dr. Perkins GRAIN ROASTER: Dr. Santiago ORTHOPEDIST: Dr. Eddy with [facility] in [place]. ETHANOL QUALITY LEADER: Dr. Anibal Prado CHIEF COMPLAINT: Possible allergic reaction. HISTORY OF PRESENT ILLNESS: The patient is an 82-year-old female with a past medical history of paroxysmal atrial fibrillation and recent right knee replacement. The patient presented to the emergency department with a chief complaint of what she described as an allergic reaction. The patient presented with diffuse hives and swelling around her bilateral orbits, which had been ongoing for greater than 24 hours. The patient stated that prior to presentation the night before, she took 50 mg of Benadryl with minimal relief, so she came to the emergency department for further evaluation. The patient stated recent knee surgery about 2 weeks ago and was placed on a new medication which includes Mobic. The patient has been taking this every day. The patient states she has a history of hypertension, diabetes, and atrial fibrillation, and is currently on Eliquis for this as well as metoprolol and flecainide. The patient denied any shortness of breath, had no conversational dyspnea or wheezing noted. The patient was overall controlling her oral secretions; no drooling, and did not appear to be in any obvious distress. The patient denies any other new activities. The patient overall appeared to have improved with Benadryl, Solu-Medrol, and Pepcid that was provided in the emergency department. Therefore, the patient did not receive any epinephrine while in the emergency department. However, the patient's blood pressure was found to be significantly elevated and atrial fibrillation with a heart rate of 150. The patient was treated with 2.5 of metoprolol and was referred to the hospitalist for admission and management. Upon discussion with the patient, she states that since her knee surgery, she had been quite concerned regarding possible medication interactions, and had been encouraged to hold certain medications by her orthopedist. The patient stated that she had not been taking metoprolol nor flecainide, as she was concerned with potential interactions. The patient does state she is having some heart palpitations, feels quite anxious. Her heart rate has responded to the metoprolol given in the emergency department, as she is currently between 110 and 120 on the monitor. PAST MEDICAL HISTORY: 1. Hypertension. 2. Diabetes mellitus type 2. 3. Osteoarthritis. 4. Possible rheumatoid arthritis for which she follows with Rheumatology. 5. Paroxysmal atrial fibrillation. 6. Chronic anticoagulation. PAST SURGICAL HISTORY: 1. Appendectomy. 2. Cholecystectomy. 3. Right knee replacement. ALLERGIES: SULFA. HOME MEDICATIONS: 1. Potassium 20 mEq p.o. daily, 30 tablets with no refills. 2. Lasix 20 mg p.o. every morning. 3. Valsartan/HCTZ 160/12.5 one tablet p.o. daily. 4. Omeprazole 20 mg p.o. daily. 6. Metoprolol-XL 50 mg p.o. daily. 7. Hydrocodone 7.5 mg p.o. daily. 8. Glyburide 4 mg p.o. daily. 9. Cymbalta 30 mg p.o. daily. 10. Diazepam 5 mg p.o. daily as needed. 11. Celebrex 200 mg p.o. daily. 12. Eliquis 5 mg p.o. daily. SOCIAL HISTORY: The patient currently resides at home. She is retired. The patient's surrogate decision maker is her daughter, Lucy. They may be reached at [phone]. The patient denies any tobacco use. No history of alcohol or illicit drug use. FAMILY HISTORY: The patient does have 2 children, both whom are healthy. The patient denies any family history of coronary disease or cancers. The patient's parents are from old age. REVIEW OF SYSTEMS: CONSTITUTIONAL: The patient denies any fevers, chills, dizziness, weakness. SKIN: The patient denies any diaphoresis or bruising, but admits to a rash and itching. HEENT: The patient denies any visual change, hearing loss, nasal drainage, sore throat. No headache. CVS: The patient denies any shortness of breath, chest pain, edema, heart palpitations. RESPIRATORY: Denies any cough, sputum production, or hemoptysis. GASTROINTESTINAL: No nausea, vomiting, diarrhea, abdominal pain, hematemesis, melena or hematochezia. : Denies any hematuria, pyuria, or dysuria. MUSCULOSKELETAL: Denies any complications of her right knee. Does have associated postoperative pain. She does have chronic pain overall. NEUROLOGIC: No seizures, tremors, loss of consciousness. HEMATOLOGIC: Denies any izzy bleeding or easy bruising. ENDOCRINE: Denies any recent weight changes. PSYCHIATRIC: Denies suicidal or homicidal ideation. The rest of the review of the other organ systems is negative. PHYSICAL EXAMINATION: GENERAL: The patient is a well-developed, well-nourished 82-year-old female who is awake, alert, and oriented to person, place, time, and situation. She is verbal and conversational. Does not appear to be in any acute distress. VITAL SIGNS: Temperature 98.0, pulse 116, respirations 21, blood pressure 137/83. Oxygen saturation 95% on room air. SKIN: Warm and dry. Diffuse hives on the inner thighs and inguinal region and on the anterior abdomen, and bilateral upper extremity edema. She is not diaphoretic. HEENT: Pupils equal, round, reactive to light and accommodation. Conjunctivae pink. Sclerae anicteric. There are no masses or lesions. The patient does have some mild periorbital edema. NECK: Supple. No JVD, no palpable lymphadenopathy or thyromegaly. CVS: Heart is irregularly irregular. There is no rub. CHEST: Clear, symmetrical. Unlabored. ABDOMEN: Soft, nontender, nondistended. Bowel sounds are present. No palpable organomegaly. BACK: No CVA tenderness or sacral edema. EXTREMITIES: No clubbing, cyanosis, or edema. No peripheral signs of embolization. +1 pedal pulses noted bilaterally. The patient's right knee incision looks great. Steri-Strips in place. The site appears approximated. PSYCHIATRIC: Appropriate affect, pleasant mood. DIAGNOSTICS/LAB VALUES: Hematology obtained on 04/07/2018: WBC 13.8, hemoglobin 12.4, hematocrit 38.5, platelet count 488,000. Chemistry obtained on 04/07/2018: Sodium 140, potassium 4.3, chloride 102, carbon dioxide 25, BUN 15, creatinine 0.80, glucose 198, calcium 10.0, magnesium 2.0, bilirubin 0.3, AST 20, ALT 42, alkaline phosphatase 93, CK 38, troponin 0.014. EKG obtained on 04/07/2018 reveals sinus rhythm at rapid rate. IMPRESSION AND PLAN: 1. Atrial fibrillation with rapid ventricular response. This is from the patient not taking her pascale agents. Will continue the patient on flecainide as well as metoprolol. Will ensure the patient is receiving appropriate Eliquis coverage as well. The patient appears to have much better control of her rate than previous. Will attempt to avoid any sort of drip if possible. Will monitor the patient closely. Will also add magnesium and thyroid studies, and obtain a troponin. 2. Acute urticaria. Interestingly, the patient has sulfa listed as an allergy; however, she is on sulfonylurea. Will hold the patient's home diabetes medication and cover with sliding scale for now. Additionally, the patient's only new medication appears to be Mobic, but it looks like she was on a chronic NSAID prior of Celebrex. Will hold both NSAIDs for the time being. Cover the patient with both H1 and H2 receptor blockers and follow. 3. Diabetes mellitus type 2. The patient appears to have excellent glycemic control. 4. Hypertension. Have continue the patient's home medications. 5. Chronic pain. Will continue the patient's home medications except for NSAIDs. 6. Chronic anticoagulation. Will continue the patient's Eliquis. DISPOSITION: The patient is a full code. Depending on the patient's symptomatology and diagnostic findings, will reevaluate in the a.m. Will admit the patient to inpatient IMCU as the patient's expected length of stay should surpass 2 midnights. Time spent on this admission including assessment, plan, physical examination, patient education, review of records, and family meeting, is 50 minutes. DICTATING PHYSICIAN: TESSA ANDERSON NP [id number] PHY#: [id number] ID: [id number] JOB#: [id number] ACCT: [id number] cc: > MTDD
[2018-04-07] MEDS: APIXABAN 2.5 MG TABLET PO SCH (17:52)
[2018-04-07] MEDS: INSULIN LISPRO 100 UNIT/ML 3 ML VIAL SUBCUT PRN ×2 (17:52→21:32)
[2018-04-07] MEDS ORDERED: SENNOSIDES/DOCUSATE 8.6-50 MG 1 EACH TABLET PO SCH (18:00)
[2018-04-07] MEDS: VALSARTAN 160 MG TABLET PO SCH (21:29)
[2018-04-07] MEDS: DULOXETINE HCL 30 MG CAPSULE.DR PO SCH (21:29)
[2018-04-07] MEDS: FLECAINIDE ACETATE 100 MG TABLET PO SCH (21:30)
[2018-04-07] MEDS: HYDROCHLOROTHIAZIDE 25 MG TABLET PO SCH (21:31)
[2018-04-07] MEDS: FAMOTIDINE INJ/PF 20 MG/2 ML SDV IV SCH (21:32)
[2018-04-08] MEDS ORDERED: LANSOPRAZOLE 30 MG TAB.RAP.DR PO SCH (06:00)
[2018-04-08 07:09] LABS: ANION GAP 14 (5-19); BLOOD UREA NITROGEN 29 mg/dL (7-20); CALCIUM 9.6 mg/dL (8.4-10.2); CARBON DIOXIDE 25 mmol/L (22-30); CHLORIDE 102 mmol/L (98-107); GLUCOSE 171 mg/dL (75-110); POTASSIUM 4.3 mmol/L (3.6-5.0); SODIUM 141.3 mmol/L (137-145)
[2018-04-08] MEDS: INSULIN LISPRO 100 UNIT/ML 3 ML VIAL SUBCUT PRN (08:52)
[2018-04-08] MEDS: DULOXETINE HCL 30 MG CAPSULE.DR PO SCH (09:40)
[2018-04-08] MEDS: METOPROLOL TARTRATE 25 MG TABLET PO SCH (09:40)
[2018-04-08] MEDS: VALSARTAN 160 MG TABLET PO SCH (09:40)
[2018-04-08] MEDS: CETIRIZINE 10 MG TABLET PO SCH (09:40)
[2018-04-08] MEDS: HYDROCHLOROTHIAZIDE 25 MG TABLET PO SCH (09:40)
[2018-04-08] MEDS: FAMOTIDINE INJ/PF 20 MG/2 ML SDV IV SCH (09:41)
[2018-04-08] MEDS: FLECAINIDE ACETATE 100 MG TABLET PO SCH (09:41)
[2018-04-08] MEDS: APIXABAN 2.5 MG TABLET PO SCH (09:41)
[2018-04-08] MEDS ORDERED: POLYETHYLENE GLYCOL 3350 POWDER 17 GM/1 PACKET PO SCH (10:00)
[2018-04-08] MEDS ORDERED: (PENDING PHARMACY ID) (Naloxegol Oxalate 25 MG) PO SCH (10:00)
[2018-04-08 10:10] VITALS: BP 98/55
--- NOTE | 2018-04-08 10:38 | PDOC DISCHARGE SUMMARY ---
General - Admit/Disc Date/PCP Admission Date/Primary Care Provider: 04/07/18 12:10 MAICO VALLEJO MD Discharge Date: 04/08/18 - Discharge Diagnosis (1) Acute urticaria Is this a current diagnosis for this admission?: Yes Summary: Unclear etiology. Pt has known sulfa allergy however is on sulfonurea for DM. However per discussion with patient has been on it "for a long time" therefore making the risk of late hypersensitivity less likely. She was started on two recent medications, PPI and LI inhibitor. May be reaction to Mobic. Advised patient to discontinue. Should meet with PCP and review medications in full. Have Benadryl PO at home prn. RTC to ED or call PCP if rash returns. (2) Atrial fibrillation with RVR Is this a current diagnosis for this admission?: Yes Summary: Rate controlled on exam today. Continue home Flecainide and Eliquis. Should follow up with cardiology as previously scheduled. (3) History of CHF (congestive heart failure) Is this a current diagnosis for this admission?: Yes Summary: Stable. (4) Diabetes Is this a current diagnosis for this admission?: Yes Summary: Adequate control. Review home medications with PCP. - Additional Information Discharge Diet: Cardiac, Diabetic Discharge Activity: Activity As Tolerated, Other Home Medications: Apixaban [Eliquis 5 mg Tablet] 5 mg PO DAILY 04/14/17 Duloxetine HCl [Cymbalta] 30 mg PO BID 04/14/17 Metoprolol Succinate [Toprol Xl 50 mg Tab.sr] 50 mg PO DAILY 04/14/17 Naloxegol Oxalate [Movantik 25 mg Tablet] 25 mg PO DAILY 04/14/17 Valsartan/Hydrochlorothiazide [Valsartan-Hctz 160-12.5 mg Tab] 160 mg PO Q12 Flecainide Acetate [Tambocor 100 mg Tablet] 50 mg PO Q12 04/07/18 Hydrocodone/Acetaminophen [[place] 7.5-325 mg Tablet] 1 tab PO TIDP PRN 04/07/18 Methotrexate Sodium [Rheumatrex 2.5 mg Tablet] 2.5 mg PO WE@1000 04/07/18 Oxycodone HCl [Oxy-Ir 5 mg Tablet] 5 mg PO Q6H 04/07/18 Pantoprazole Sodium [Protonix] 40 mg PO DAILY 04/07/18 Polyethylene Glycol 3350 [Miralax Powder 17 gm/Packet] 1 packet PO DAILY Sennosides/Docusate Sodium [Senna-S Tablet] 1 each PO QPM 04/07/18 History of Present Illness Patient complains of: allergic reaction History of Present Illness: ARMOND GODINEZ is a 82 year old female Hospital Course Hospital Course: Please see H*P from 04/07 for full details. Treated with H1 and H2 chantelle for urticaria with improvement at discharge. Afib with AVR -- rate controlled at discharge. Physical Exam Vital Signs: Temp Pulse Resp BP Pulse Ox 98.2 F 69 16 98/55 L 98 04/08/18 10:08 04/08/18 10:08 04/08/18 10:08 04/08/18 10:08 04/08/18 10:08 Intake & Output 04/07/18 04/08/18 04/09/18 06:59 06:59 06:59 Intake Total 687 Balance 687 Weight 107.7 kg General appearance: PRESENT: no acute distress, cooperative, obese Head exam: PRESENT: atraumatic Mouth exam: PRESENT: moist Cardiovascular exam: PRESENT: RRR, +S1, +S2. ABSENT: irregular rhythm GI/Abdominal exam: PRESENT: soft. ABSENT: tenderness Extremities exam: PRESENT: full ROM Neurological exam: PRESENT: alert, awake, oriented to person, oriented to place , oriented to time, oriented to situation Psychiatric exam: PRESENT: normal mood Skin exam: PRESENT: rash - On face, abdomen, and extremities --> improving Results Laboratory Results: 04/08/18 05:06 04/08/18 05:06 Sodium 141.3 Potassium 4.3 Chloride 102 Carbon Dioxide 25 Anion Gap 14 BUN 29 H Creatinine 0.94 Est GFR ( Amer) > 60 Est GFR (Non-Af Amer) 57 L Glucose 171 H Calcium 9.6 Magnesium 2.2 Impressions: Chest X-Ray 04/07/18 09:40 IMPRESSION: No acute abnormality of the lungs. No focal airspace opacity. Qualifiers - * PATIENT BEING DISCHARGED WITH ANY OF THE FOLLOWING DIAGNOSIS: No Plan Time Spent: Less than 30 Minutes
--- NOTE | 2018-04-08 10:44 | EKG REPORT ---
SEVERITY:- ABNORMAL ECG - SINUS RHYTHM LEFT ANTERIOR FASCICULAR BLOCK PROBABLE LEFT VENTRICULAR HYPERTROPHY : Confirmed by: Jacqueline Hernandez 08-Apr-2018 10:43:59
== END 2018-04-08 11:05 | disposition home or self-care (01) | DRG 310 ==
LOC: ER 07:38 → EH 12:10 → 3W 13:29
PROVIDERS: ADMIT Emergency Medicine; ATTEND Emergency Medicine
DX: I48.0 Paroxysmal atrial fibrillation (principal); E11.9 Type 2 diabetes mellitus without complications; L50.9 Urticaria, unspecified; I10 Essential (primary) hypertension; M19.90 Unspecified osteoarthritis, unspecified site; M19.042 Primary osteoarthritis, left hand; M19.041 Primary osteoarthritis, right hand; M19.071 Primary osteoarthritis, right ankle and foot; Z96.651 Presence of right artificial knee joint; Z79.01 Long term (current) use of anticoagulants; Z90.49 Acquired absence of other specified parts of digestive tract; Z79.899 Other long term (current) drug therapy; Z88.2 Allergy status to sulfonamides
CPT/HCPCS: 36415; 71046; 80048; 82962; 83735; 84443; 84484; 85025; 93005; 93010; 96374; 96375; 99291; G8978-GP; G8979-GP; G8980-GP; J1200; J1815; J2930; J3490; S0028

== ENCOUNTER 2018-05-25 10:52 | Emergency (ER) | payer MEDICARE, OTHER ==
[2018-05-25] MEDS ORDERED: MORPHINE SULFATE 10 MG/ML INJ IM ONE (11:54)
--- NOTE | 2018-05-25 11:55 | ER Document Report ---
ED Medical Screen (RME) - General Chief Complaint: Low Back Pain Stated Complaint: LOW BACK PAIN Time Seen by Provider: 05/25/18 11:38 TRAVEL OUTSIDE OF THE [place] IN LAST 30 DAYS: No - Related Data Allergies/Adverse Reactions: Sulfa (Sulfonamide Antibiotics) Allergy (Verified 05/25/18 10:59) Past Medical History - Social History Chew tobacco use (# tins/day): No Frequency of alcohol use: None Drug Abuse: None Family history: Reviewed & Not Pertinent - Past Medical History Cardiac Medical History: Reports: Hx Atrial Fibrillation, Hx Hypertension Denies: Hx Coronary Artery Disease, Hx Heart Attack Pulmonary Medical History: Denies: Hx Asthma, Hx Bronchitis, Hx COPD, Hx Pneumonia Neurological Medical History: Denies: Hx Cerebrovascular Accident, Hx Seizures Endocrine Medical History: Reports: Hx Diabetes Mellitus Type 2 Renal/ Medical History: Denies: Hx Peritoneal Dialysis GI Medical History: Denies: Hx Hepatitis, Hx Hiatal Hernia, Hx Ulcer Musculoskeltal Medical History: Reports Hx Arthritis - RIGHT BIG TOE & HANDS, POSS rheumatoid Psychiatric Medical History: Reports: Hx Depression Infectious Medical History: Denies: Hx Hepatitis Past Surgical History: Reports: Hx Appendectomy, Hx Cardiac Catheterization, Hx Cholecystectomy. Denies: Hx Hysterectomy, Hx Mastectomy, Hx Open Heart Surgery, Hx Pacemaker - Immunizations Hx Diphtheria, Pertussis, Tetanus Vaccination: Yes Physical Exam - Vital signs Vitals: Temp Pulse Resp BP Pulse Ox 98.5 F 74 16 145/63 H 98 05/25/18 11:08 05/25/18 11:08 05/25/18 11:08 05/25/18 11:08 05/25/18 11:08 Course - Re-evaluation Re-evalutation: 05/25/18 11:55 This is an 82-year-old female with chronic back pain who presents 2 days after being evaluated in her pain clinic for her back pain. She currently waits treatment at an outside facility on the 10th says that she is in intense pain. I have seen and evaluated this patient, they have undergone a rapid medical screening examination, they will require reevaluation further examination potential further diagnostics and disposition determination by secondary provider. - Vital Signs Vital signs: Temp Pulse Resp BP Pulse Ox 98.5 F 74 16 145/63 H 98 05/25/18 11:08 05/25/18 11:08 05/25/18 11:08 05/25/18 11:08 05/25/18 11:08
[2018-05-25] MEDS ORDERED: CYCLOBENZAPRINE HCL 10 MG TABLET PO ONE (14:36)
[2018-05-25] MEDS ORDERED: HYDROMORPHONE HCL INJ/PF 2 MG/ML AMPULE IM ONE (14:36)
--- NOTE | 2018-05-25 14:54 | ER Document Report ---
ED General - General Chief Complaint: Low Back Pain Stated Complaint: LOW BACK PAIN Time Seen by Provider: 05/25/18 11:38 Mode of Arrival: Ambulatory Information source: Patient, Relative, [facility] Records Notes: 82-year-old female with atrial fibrillation, hypertension, reflux, type 2 diabetes, chronic back pain who has been undergoing pain management treatment at [facility] presents with acute on chronic back pain. Patient states that she has a final stimulator that reportedly has moved and is now shooting down to her leg. She does have an upcoming appointment with a spinal surgeon on May 29. Patient states that she has taken her prescribed oxycodone without relief. Patient states that she has signed the paperwork to be transferred for pain management in [place]. She denies any change in pain, recent injury, saddle anesthesia, fecal incontinence, urinary retention, fever. TRAVEL OUTSIDE OF THE [place] IN LAST 30 DAYS: No - HPI Onset: Other Onset/Duration: Persistent, Worse Quality of pain: Stabbing, Throbbing Severity: Severe Associated symptoms: Body/muscle aches. denies: Chest pain, Fever, Nausea, Vomiting, Sweating Exacerbated by: Movement, Walking Relieved by: Denies Similar symptoms previously: Yes Recently seen / treated by doctor: Yes - Related Data Allergies/Adverse Reactions: Sulfa (Sulfonamide Antibiotics) Allergy (Verified 05/25/18 10:59) Past Medical History - General Information source: Patient, [facility] Records - Social History Smoking Status: Never Smoker Chew tobacco use (# tins/day): No Frequency of alcohol use: None Drug Abuse: None Lives with: Family Family History: Reviewed & Not Pertinent Patient has suicidal ideation: No Patient has homicidal ideation: No - Past Medical History Cardiac Medical History: Reports: Hx Atrial Fibrillation, Hx Hypertension Denies: Hx Coronary Artery Disease, Hx Heart Attack Pulmonary Medical History: Denies: Hx Asthma, Hx Bronchitis, Hx COPD, Hx Pneumonia Neurological Medical History: Denies: Hx Cerebrovascular Accident, Hx Seizures Endocrine Medical History: Reports: Hx Diabetes Mellitus Type 2 Renal/ Medical History: Denies: Hx Peritoneal Dialysis GI Medical History: Reports: Hx Gastroesophageal Reflux Disease. Denies: Hx Hepatitis, Hx Hiatal Hernia, Hx Ulcer Musculoskeletal Medical History: Reports Hx Arthritis - RIGHT BIG TOE & HANDS, POSS rheumatoid Psychiatric Medical History: Reports: Hx Depression Infectious Medical History: Denies: Hx Hepatitis Past Surgical History: Reports: Hx Appendectomy, Hx Cardiac Catheterization, Hx Cholecystectomy, Hx Orthopedic Surgery. Denies: Hx Hysterectomy, Hx Mastectomy, Hx Open Heart Surgery, Hx Pacemaker - Immunizations Hx Diphtheria, Pertussis, Tetanus Vaccination: Yes Hx Pneumococcal Vaccination: 05/22/11 Review of Systems - Review of Systems Notes: REVIEW OF SYSTEMS: CONSTITUTIONAL : Denies fever, chills, or sweats. Denies recent illness. Denies weight loss, recent hospitalizations. EENT: Denies visual changes, eye pain. Denies sore throat, oral lesions, difficulty swallowing. CARDIOVASCULAR: Denies chest pain. Denies palpitations. Denies lower extremity edema. RESPIRATORY: Denies cough. Denies shortness of breath, wheezing. GASTROINTESTINAL: Denies abdominal pain or distention. Denies nausea, vomiting, or diarrhea. Denies blood in vomitus, stools, or per rectum. Denies black, tarry stools. Denies constipation. GENITOURINARY: Denies difficulty urinating, painful urination, frequency, blood in urine, or vaginal discharge. MUSCULOSKELETAL: Denies back or neck pain or stiffness. Denies joint pain or swelling. SKIN: Denies rash, lesions or sores. HEMATOLOGIC : Denies easy bruising or bleeding. LYMPHATIC: Denies swollen glands. NEUROLOGICAL: Denies confusion or altered mental status. Denies loss of consciousness. Denies dizziness or lightheadedness. Denies headache. Denies weakness or paralysis. Denies problems difficulty with ambulation, slurred speech. Denies sensory loss, numbness, or tingling. Denies seizures. PSYCHIATRIC: Denies anxiety or stress. Denies depression, suicidal ideation, or homicidal ideation. Denies visual or auditory hallucinations. PHYSICAL EXAMINATION: GENERAL: Appears to be in significant pain. HEAD: Atraumatic, normocephalic. EYES: Pupils equal round and reactive to light, extraocular movements intact, conjunctiva are normal. ENT: Nares patent, oropharynx clear without exudates. Moist mucous membranes. NECK: Normal range of motion, supple without lymphadenopathy LUNGS: Breath sounds clear to auscultation bilaterally and equal. No wheezes rales or rhonchi. HEART: Regular rate and rhythm without murmurs ABDOMEN: Soft, nontender, nondistended abdomen. No guarding, no rebound. No masses appreciated. Female : deferred Musculoskeletal: Normal range of motion, no pitting or edema. No cyanosis. 5/5 dorsi and plantar flexion. Tenderness with palpation to the paraspinal musculature of the lumbar spine bilaterally. No midline tenderness. No erythema. NEUROLOGICAL: Cranial nerves grossly intact. Normal speech, normal gait. Normal sensory, motor exams PSYCH: Normal mood, normal affect. SKIN: Warm, Dry, normal turgor, no rashes or lesions noted. Physical Exam - Vital signs Vitals: Temp Pulse Resp BP Pulse Ox 98.5 F 74 16 145/63 H 98 05/25/18 11:08 05/25/18 11:08 05/25/18 11:08 05/25/18 11:08 05/25/18 11:08 Course - Re-evaluation Re-evalutation: 05/25/18 15:53 82-year-old female with chronic back pain presents with complaint of acute on chronic back pain. Patient states pain is unchanged. She is currently waiting for evaluation by a spinal surgeon. Has been recently treated at [place] [facility] without relief. Denies any new injury. States she was told by pain management that her stimulator has moved from the original position. Prior to my evaluation patient did receive 5 mg of IM morphine and reports no relief. An additional 1 mg of IM Dilaudid patient patient states that she is feeling better. She does not want any home-going medication as she states that she has 2 bottles of oxycodone at home. Patient was discharged home in stable condition with recommendations to return with any concerning symptoms. Present ation of a well appearing patient complaining of acute on chronic back pain. No rapid progression of symptoms, systemic symptoms including fevers, chills, weight loss, history of recent bacterial infection, bilateral symptoms, numbness, weakness, difficulty walking, urinary retention or bowel incontinence, personal history of cancer, immunosuppression, diabetes, known AAA, or history of IV drug use. Exam is without point tenderness over vertebral bodies, pulsatile abdominal mass, and patient has symmetric and intact lower extremity strength, sensation, and reflexes without clonus. 2+ symmetric medial malleolar and dorsalis pedis pulses 05/25/18 23:08 - Vital Signs Vital signs: Temp Pulse Resp BP Pulse Ox 98.0 F 74 20 150/65 H 96 05/25/18 16:50 05/25/18 16:50 05/25/18 16:50 05/25/18 16:50 05/25/18 16:50 Discharge - Discharge Clinical Impression: Acute exacerbation of chronic low back pain Hypertension Qualifiers: Hypertension type: unspecified Qualified Code(s): I10 - Essential (primary) hypertension Condition: Good Disposition: HOME, SELF-CARE Instructions: Ice Packs ([facility]), Low Back Pain ([facility]), Pain Medication Injection ([facility]) Additional Instructions: You have been seen in the Emergency Department (ED) today for back pain. Apply heat to the area as often as you are able. Continue to keep active and avoid prolonged periods of bed rest. Please correlate your upcoming appointment on May 29 with neurosurgery. Please follow up with your doctor as soon as possible regarding today's ED visit and your back pain. Return to the ED for worsening back pain, fever, weakness or numbness of either leg, or if you develop either (1) an inability to urinate or have bowel movements, or (2) loss of your ability to control your bathroom functions (if you start having "accidents"), or if you develop other new symptoms that concern you.concern you. Forms: Elevated Blood Pressure
[2018-05-25] MEDS ORDERED: FENTANYL CITRATE INJ/PF 100 MCG/2 ML AMPUL IV ONE (15:52)
[2018-05-25] MEDS ORDERED: FENTANYL CITRATE INJ/PF 100 MCG/2 ML AMPUL IM ONE (16:25)
[2018-05-25 16:59] VITALS: BP 150/65
== END 2018-05-25 17:17 | disposition home or self-care (01) ==
LOC: ER 10:52
DX: G89.29 Other chronic pain (principal); M54.5 Low back pain; Z96.89 Presence of other specified functional implants; Z79.891 Long term (current) use of opiate analgesic; I10 Essential (primary) hypertension; E11.9 Type 2 diabetes mellitus without complications; Z88.2 Allergy status to sulfonamides
CPT/HCPCS: 99283; 96372; A9270; J3010; J2270; J1170

== ENCOUNTER 2018-06-13 08:18 | Emergency (ER) | payer MEDICARE ==
[2018-06-13] MEDS ORDERED: KETOROLAC TROMETHAMINE INJ/PF 30 MG/1 ML SDV IM ONE (09:45)
[2018-06-13] MEDS ORDERED: HYDROMORPHONE HCL INJ/PF 2 MG/ML AMPULE IV ONE (09:45)
[2018-06-13] MEDS ORDERED: LIDOCAINE 5% (700 MG) TRANSDERMAL ADH..PATCH TP ONE (09:46)
--- NOTE | 2018-06-13 10:03 | ER Document Report ---
HPI - HPI Time Seen by Provider: 06/13/18 09:30 Pain Level: 5 Notes: Patient is an 82-year-old female with a history of atrial fibrillation, hypertension, reflux, type 2 diabetes, chronic back pain who presents to the emergency department complaining of acute on chronic low back pain primarily with twisting movements that started last evening. Patient states that she does not recall any injury. Patient states that twisting does make the pain worse. Patient does have a spinal cord stimulator in place, but is not in correct position and does not work well for her. Patient has been seen a couple weeks ago by the pain management clinic who is going to be setting up a surgery for her back. Patient states that they also took several x-rays of her back at that time. She does have another appointment scheduled in a week. She otherwise has no other concerns or complaints. The pain does not radiate. She is eating and drinking without difficulty. She does not have any acute difficulties with bowel or bladder. No recent injections to her back. No other recent illness. Patient states that she was here recently for similar pain. Denies any headache, fever, neck pain, URI, sore throat, chest pain, palpitations, syncope, cough, shortness of breath, wheeze, dyspnea, abdominal pain, nausea/vomiting/diarrhea, urinary retention, dysuria, hematuria, loss of control of bowel or bladder, numbness/tingling, saddle anesthesia, muscle paralysis/weakness, or rash. - ROS Systems Reviewed and Negative: Yes All other systems reviewed and negative - REPRODUCTIVE Reproductive: DENIES: : Past Medical History - Social History Smoking Status: Unknown if Ever Smoked Family History: Reviewed & Not Pertinent Patient has suicidal ideation: No Patient has homicidal ideation: No - Past Medical History Cardiac Medical History: Reports: Hx Atrial Fibrillation, Hx Hypertension Denies: Hx Coronary Artery Disease, Hx Heart Attack Pulmonary Medical History: Denies: Hx Asthma, Hx Bronchitis, Hx COPD, Hx Pneumonia Neurological Medical History: Denies: Hx Cerebrovascular Accident, Hx Seizures Endocrine Medical History: Reports: Hx Diabetes Mellitus Type 2 Renal/ Medical History: Denies: Hx Peritoneal Dialysis GI Medical History: Reports: Hx Gastroesophageal Reflux Disease. Denies: Hx Hepatitis, Hx Hiatal Hernia, Hx Ulcer Musculoskeletal Medical History: Reports Hx Arthritis - RIGHT BIG TOE & HANDS, POSS rheumatoid Psychiatric Medical History: Reports: Hx Depression Infectious Medical History: Denies: Hx Hepatitis Past Surgical History: Reports: Hx Appendectomy, Hx Cardiac Catheterization, Hx Cholecystectomy, Hx Orthopedic Surgery. Denies: Hx Hysterectomy, Hx Mastectomy, Hx Open Heart Surgery, Hx Pacemaker - Immunizations Hx Diphtheria, Pertussis, Tetanus Vaccination: Yes Hx Pneumococcal Vaccination: 05/22/11 Vertical Provider Document - CONSTITUTIONAL Agree With Documented VS: Yes Notes: PHYSICAL EXAMINATION: GENERAL: Well-appearing, well-nourished and in no acute distress. LUNGS: Breath sounds clear to auscultation bilaterally and equal. No wheezes rales or rhonchi. HEART: Regular rate and rhythm without murmurs, rubs, gallops. ABDOMEN: Soft, nontender, nondistended abdomen. No guarding, no rebound. No masses appreciated. Normal bowel sounds present. No CVA tenderness bilaterally. No pulsatile mass Musculoskeletal: LE's b/l: FROM to passive/active. Strength 5+/5. No deficits noted. No bony tenderness of extremities. Back: LROM to passive/active due to pain with rotation. Strength 5+/5. No vertebral point tenderness, stepoffs, or deformities. No other bony tenderness, erythema, swelling, or ecchymosis. SLR negative b/l. + mild tenderness to the L-paraspinal mm b/l. Mild spasming. No SI jt tenderness. No foot drop Extremities: No cyanosis, clubbing, or edema b/l. Peripheral pulses 2+. Capillary refill less than 2 seconds. NEUROLOGICAL: Normal speech. Normal sensory, motor exams. Reflexes 2+ b/l. PSYCH: Normal mood, normal affect. SKIN: Warm, Dry, normal turgor, no rashes or lesions noted. - INFECTION CONTROL TRAVEL OUTSIDE OF THE [place] IN LAST 30 DAYS: No Course - Re-evaluation Re-evalutation: 06/13/18 10:29 Patient is an afebrile, well-hydrated, 82-year-old female who presents to the ED with acute on chronic low back pain. Vitals are acceptable. PE is otherwise unremarkable for any focal neurological deficits. Patient was given toradol, dilaudid 1mg IM, and a Lidoderm patch. She has no significant tachycardia, tachypnea, or hypoxia. She is nontoxic-appearing and is tolerating p.o. without difficulties. There are no signs of infection. No other red flag symptoms noted. No other labs or imaging warranted at this time based on H&P. Low suspicion for any meningitis, fracture, expanding/ruptured AAA, cauda equina syndrome, epidural mass lesion/abscess, herniated disc causing severe spinal stenosis, or other systemic infection at this time. Patient is aware that this condition can change from initial presentation and that she needs monitor symptoms closely for any acute changes. Pt is feeling better. I will send her home with a prescription for Lidoderm. Conservative measures otherwise for symptoms. Recheck with your PCM/Pain management in 2-3 days. Consider consult with orthopedic/physical therapy. Return to the ED with any worsening/concerning symptoms otherwise as reviewed discharge. Patient is in agreement. Discharge - Discharge Clinical Impression: Acute exacerbation of chronic low back pain Condition: Stable Disposition: HOME, SELF-CARE Instructions: Low Back Pain ([facility]) Additional Instructions: Rest, Ice Tylenol/ibuprofen as needed Light stretches daily Strength exercises as able Moist heat and massage may help F/u with your PCP/Pain management in 2-3 days for a recheck Consider consult(s) with Orthopedics/physical therapy for ongoing/worsening symptoms Return to the ED with any worsening symptoms and/or development of fever, headache, chest pain, palpitations, syncope, shortness of breath, trouble breathing, abdominal pain, n/v/d, blood in stool/urine, loss of control of bowel/bladder, urinary retention, muscle weakness/paralysis, saddle anesthesia, numbness/tingling, or other worsening symptoms that are concerning to you. Prescriptions: Lidocaine [Lidoderm 5% (700 mg) Transdermal Patch] 1 patch TP DAILY #10 adh..patch Forms: Elevated Blood Pressure Referrals: [facility] [Provider Group] - Follow up as needed
[2018-06-13 12:22] VITALS: BP 132/78
== END 2018-06-13 12:22 | disposition home or self-care (01) ==
LOC: ER 08:18
DX: G89.29 Other chronic pain (principal); M54.5 Low back pain; R25.2 Cramp and spasm; I10 Essential (primary) hypertension; E11.9 Type 2 diabetes mellitus without complications
CPT/HCPCS: 99283; 96372; 96374; J1885; J1170

== ENCOUNTER → 2019-11-12 | Outpatient (CLI) | payer MEDICARE, OTHER ==
[~2019-11-12] MED LIST changes: -AMINOPHYLLINE INJ/PF 250 MG/10 ML SDV IV ONE
--- NOTE | 2019-11-12 11:56 | DRAGON STRESS TEST REPORT ---
Name: Ellyn Sanchez : September Date: NOV 08 The patient underwent a stress/rest, single isotope SPECT Imaging with pharmacological stress and gated SPECT imaging on for evaluation of. The patient underwent infusion of regadnoson 0.4mg IV using the standard protocol. The heart rate was 59 beats per minute at baseline and increased to 75 beats during the infusion of regadenoson. The resting blood pressure was 140/48 mm/Hg and decreased to 134/48 mm/Hg, which is a normal response. The patient complained of shortness of breath and lightheadedness during the procedure. The resting electrocardiogram demonstrated NSR with NSSTTW changes. Stress electrocardiogram is non-diagnostic in the setting of pharmacological stress. Myocardial perfusion imaging was performed at rest following the injection of 14.70 mCi of sestamibi. At peak pharmacolgic effect, the patient was injected with 45.60 mCi of sestamibi. Gating post-stress tomographic imaging was performed 60 minutes after stress. Findings The overall quality of the study is good. Raw images demonstrate mild GI contamination of the inferolateral segment in both the resting and stress images. Left ventricular cavity is noted to be normal on the rest and stress studies. Resting SPECT images demonstrate a small sized, of mild intensity defect in the anterior wall. The stress images reveal a small sized, of mild intensity defect in the anterior wall. Gated SPECT imaging reveals normal myocardial thickening and wall motion. The left ventricular ejection fraction was calculated to be 68% Impression -Myocardial perfusion imaging is normal with the above artifacts. -There is no scintigraphic evidence of ischemia or infarct. -The fixed defect in the anterior wall is likely to be secondary to breast attenuation given the normal thickening of the wall, normal systolic function and the absence of regional wall motion abnormalities. -Overall left ventricular systolic function was normal without wall motion. -There are no prior studies for comparison. [facility]
== END ==
LOC: RAD 07:08
PROVIDERS: ATTEND Internal Medicine Cardiovascular Disease
DX: R06.00 Dyspnea, unspecified (principal)
CPT/HCPCS: 93017; 78452; A9500; J2785; Q9969

== ENCOUNTER → 2020-03-16 | Outpatient (CLI) | payer MEDICARE, OTHER ==
[2020-03-16 12:03] VITALS: BP 178/73
--- NOTE | 2020-03-16 12:03 | ER RDC ASSESSMENT REPORT ---
Intake - In the Last 14 days Have you traveled outside [place]?: No Have you been in close contact with someone CONFIRMED: No Worked in Healthcare?: No - Symptoms Subjective Fever(Huggins feverish): No Chills: No Muscule Aches: No Runny Nose: No Sore Throat: No Cough (New or worsening chronic cough): No Shortness of breath: No Nausea or Vomiting: No Headache: No Abdominal Pain: No Diarrhea(3 or more loose stools in last 24 hours): No - Do you have any of the following Chronic lung disease: Asthma or emphysema or COPD: No Cystic Fibrosis: No Diabetes: Yes High Blood Pressure: Yes Cardiovascular Disease: Yes Chronic Kidney Disease: No Chronic Liver Disease: No Chronic blood disorder like Sickle Cell Disease: No Weak immune system due to disease or medication: No Neurologic condition that limits movement: No Developmental delay - Moderate to Severe: No Recent (within past 2 weeks) or current : No Morbid Obesity (>100 pounds over ideal weight): No - Objective Temperature: 97.6 F Pulse Rate: 59 Respiratory Rate: 16 Blood Pressure: 178/73 O2 Sat by Pulse Oximetry: 93 Objective: Given above, testing performed: covid General - General Stated Complaint: covid testing Time Seen by Provider: 03/16/20 10:45 Mode of Arrival: Ambulatory Information source: Patient - HPI Notes: Patient presents to clinic for COVID-19 testing. Patient has had no direct contact with Covid positive individual ; however, she states her grandson did test positive and she has had contact with his mother who is also being tested today. Patient is asymptomatic. They deny any cough, shortness of breath, fever, chills, muscle aches, rhinorrhea, sore throat, nausea or vomiting, headache, abdominal pain or diarrhea. Patient has no acute medical concerns. - Related Data Allergies/Adverse Reactions: Sulfa (Sulfonamide Antibiotics) Allergy (Verified 05/25/18 10:59) Past Medical History - General Information source: Patient - Social History Smoking Status: Never Smoker Family History: Reviewed & Not Pertinent - Past Medical History Cardiac Medical History: Reports: Hx Atrial Fibrillation, Hx Hypertension Denies: Hx Coronary Artery Disease, Hx Heart Attack Pulmonary Medical History: Reports: None Denies: Hx Asthma, Hx Bronchitis, Hx COPD, Hx Pneumonia EENT Medical History: Reports: None Neurological Medical History: Reports: None. Denies: Hx Cerebrovascular Acciden t, Hx Seizures Endocrine Medical History: Reports: Hx Diabetes Mellitus Type 2 Renal/ Medical History: Reports: None. Denies: Hx Peritoneal Dialysis Malignancy Medical History: Reports: None GI Medical History: Reports: Hx Gastroesophageal Reflux Disease. Denies: Hx Hepatitis, Hx Hiatal Hernia, Hx Ulcer Musculoskeletal Medical History: Reports Hx Arthritis - RIGHT BIG TOE & HANDS, POSS rheumatoid Skin Medical History: Reports None Psychiatric Medical History: Reports: Hx Depression Traumatic Medical History: Reports: None Infectious Medical History: Reports: None. Denies: Hx Hepatitis Past Surgical History: Reports: Hx Appendectomy, Hx Cardiac Catheterization, Hx Cholecystectomy, Hx Hysterectomy, Hx Orthopedic Surgery, Hx Tonsillectomy. Denies: Hx Mastectomy, Hx Open Heart Surgery, Hx Pacemaker Physical Exam - General General appearance: Appears well, Alert In distress: None Notes: PHYSICAL EXAMINATION: GENERAL: Well-appearing and in no acute distress. HEAD: Atraumatic, normocephalic. EYES: sclera anicteric, conjunctiva are normal. ENT: nares patent. Moist mucous membranes. NECK: Normal range of motion, supple without lymphadenopathy. LUNGS: No increased work of breathing. Lung sounds CTAB and equal. No wheezes rales or rhonchi. HEART: Regular rate and rhythm without murmurs. ABDOMEN: Soft, nontender, normal bowel sounds, no guarding. EXTREMITIES: Normal range of motion, no pitting edema. No cyanosis. NEUROLOGICAL: A&O x 3. Normal speech. PSYCH: Normal mood, normal affect. SKIN: Warm, Dry, normal turgor, no rashes or lesions noted Patient Education/Counseling Counseling/Education: Patient presents for COVID 19 testing. Patient is asymptomatic at this time. Patient does not have emergency worrying symptoms such as difficulty breathing, shortness of breath, chest pain, pressure, confusion or cyanosis. Patient appears suitable for discharge as vital signs are stable and patient is nontoxic in appearance. Good return precautions have been discussed with patient, patient verbalized understanding and is agreeable with discharge plan of care at this time. Guidance for worsening S/SX: As a person under investigation for Covid 19, the [facility], division of public health advises you to adhere to the following guidance until your test results are reported to you. If your test result is positive, you will receive additional information from your provider and your local health department at that time. Remain at home until you are cleared by the health provider or public health authorities. Keep a log of visitors to your home, notify any visitors to your home of your isolation status. If you plan to move to a new address or leave the county, notify the local health department in your County. Call your doctor or seek care if you have an urgent medical need. Before seeking medical care, call ahead to get instructions from the provider before arriving at the medical office clinic or hospital. Notify them that you are being tested for the virus that causes Covid 19 so that arrangements can be made, as necessary, to prevent transmission to others in the healthcare setting. Next, notify the local health department in your county. If a medical emergency arises and you need to call 911, inform the first responders that you are being tested for the virus that causes Covid 19. Next, notify the local health department in your county. RDC Discharge - Discharge Clinical Impression: Encounter for screening laboratory testing for COVID-19 virus Condition: Good Disposition: Home; Selfcare
== END ==
LOC: RDC 10:27
PROVIDERS: ATTEND Registered Nurse
DX: Z20.828 Contact with and (suspected) exposure to other viral communicable diseases (principal); E11.9 Type 2 diabetes mellitus without complications; I10 Essential (primary) hypertension; K21.9 Gastro-esophageal reflux disease without esophagitis; M13.89 Other specified arthritis, multiple sites; Z88.1 Allergy status to other antibiotic agents
CPT/HCPCS: U0003; C9803; 87635

== ENCOUNTER 2020-03-17 10:03 | Emergency (ER) | payer MEDICARE, OTHER ==
[2020-03-17 11:49] LABS: ABSOLUTE BASOPHILS # (AUTO) 0.1 10^3/uL (0.0-0.2); ABSOLUTE EOSINOPHILS # (AUTO) 0.2 10^3/uL (0.0-0.6); ABSOLUTE LYMPHOCYTES (AUTO) 1.2 10^3/uL (0.5-4.7); ABSOLUTE MONOCYTES (AUTO) 0.5 10^3/uL (0.1-1.4); BASOPHILS % (AUTO) 0.9 % (0-2); EOSINOPHILS % (AUTO) 3.2 % (0-6); HEMATOCRIT 39.3 % (36.0-47.0); HEMOGLOBIN 12.7 g/dL (12.0-15.5); LYMPHOCYTES % (AUTO) 20.5 % (13-45); MEAN CORPUSCULAR HGB CONC 32.3 g/dL (32.0-36.0); MEAN CORPUSCULAR VOLUME 77 fl (80-97); MONOCYTES % (AUTO) 8.3 % (3-13); PLATELET COUNT 269 10^3/uL (150-450); RED BLOOD COUNT 5.09 10^6/uL (3.72-5.28); RED CELL DISTRIBUTION WIDTH 16.5 % (11.5-14.0); SEGMENTED NEUTROPHILS % (AUTO) 67.1 % (42-78); TOTAL CELLS COUNTED % (AUTO) 100 %; WHITE BLOOD COUNT 5.9 10^3/uL (4.0-10.5)
--- NOTE | 2020-03-17 11:59 | RADIOLOGY REPORT (SQ) ---
EXAM DESCRIPTION: CHEST SINGLE VIEW IMAGES COMPLETED DATE/TIME: 03/17/2020 11:39 am REASON FOR STUDY: chest pain COMPARISON: 04/07/2018. EXAM PARAMETERS: NUMBER OF VIEWS: One view. TECHNIQUE: Single frontal radiographic view of the chest acquired. RADIATION DOSE: NA LIMITATIONS: None. FINDINGS: LUNGS AND PLEURA: No opacities, masses or pneumothorax. No pleural effusion. MEDIASTINUM AND HILAR STRUCTURES: No masses. Contour normal. HEART AND VASCULAR STRUCTURES: Heart normal in size. Normal vasculature. BONES: No acute findings. HARDWARE: Spinal stimulator electrodes. OTHER: No other significant finding. IMPRESSION: NO ACUTE RADIOGRAPHIC FINDING IN THE CHEST. TECHNICAL DOCUMENTATION: JOB ID: [id number] 2010 Close- All Rights Reserved Reading location - IP/workstation name: [email or web address]
[2020-03-17 12:01] LABS: ALBUMIN 4.1 g/dL (3.5-5.0); ALKALINE PHOSPHATASE 71 U/L (38-126); ANION GAP 10 (5-19); ASPARTATE AMINO TRANSFERASE 19 U/L (14-36); BILIRUBIN,DIRECT 0.2 mg/dL (0.0-0.4); BILIRUBIN,TOTAL 0.6 mg/dL (0.2-1.3); BLOOD UREA NITROGEN 23 mg/dL (7-20); CARBON DIOXIDE 28 mmol/L (22-30); CHLORIDE 101 mmol/L (98-107); CREATINE KINASE 36 U/L (30-135); GLUCOSE 151 mg/dL (75-110); POTASSIUM 3.8 mmol/L (3.6-5.0); TOTAL PROTEIN 6.3 g/dL (6.3-8.2)
[2020-03-17 12:13] LABS: CREATINE KINASE MB 1.17 ng/mL (<4.55); TROPONIN I 0.012 ng/mL
--- NOTE | 2020-03-17 13:07 | EKG REPORT ---
SEVERITY:- ABNORMAL ECG - SINUS RHYTHM PROBABLE LEFT ATRIAL ABNORMALITY LEFT ANTERIOR FASCICULAR BLOCK LVH WITH SECONDARY REPOLARIZATION ABNORMALITY : Confirmed by: Yazan Eaton MD 17-Mar-2020 13:06:36
--- NOTE | 2020-03-17 13:44 | ER Document Report ---
ED Cardiac - General Chief Complaint: Chest Pain Stated Complaint: CHEST PAIN Time Seen by Provider: 03/17/20 11:30 Primary Care Provider: MAICO VALLEJO MD [Primary Care Provider] - Follow up as needed Mode of Arrival: Ambulatory Information source: Patient TRAVEL OUTSIDE OF THE [place] IN LAST 30 DAYS: No - HPI Notes: Patient arrives complaint of palpitations. She states that she had palpitations most of the night and felt that she was having a flareup of her atrial fibrillation. She states she had some minor chest discomfort with this as well. She called her bullard machine operator to recommend she come to the hospital for eval uation. She denies any pain or problems at this time. She did have some shortness of breath in the middle the night but no shortness of breath now. No nausea vomiting or diarrhea. She states that she was tested for Covid yesterday but does not have the results yet. She states that she was exposed to a friend who was exposed to another person who had Covid. However she is not sure of her friend is positive. She denies any recent fever or chills. No vomiting or diarrhea. Patient symptoms are mild. Nothing made them better or worse. - Related Data Allergies/Adverse Reactions: Sulfa (Sulfonamide Antibiotics) Allergy (Verified 05/25/18 10:59) Past Medical History - General Information source: Patient - Social History Smoking Status: Never Smoker Chew tobacco use (# tins/day): No Frequency of alcohol use: None Drug Abuse: None Family History: Reviewed & Not Pertinent - Past Medical History Cardiac Medical History: Reports: Hx Atrial Fibrillation, Hx Hypertension Denies: Hx Coronary Artery Disease, Hx Heart Attack Pulmonary Medical History: Denies: Hx Asthma, Hx Bronchitis, Hx COPD, Hx Pneumonia Neurological Medical History: Denies: Hx Cerebrovascular Accident, Hx Seizures Endocrine Medical History: Reports: Hx Diabetes Mellitus Type 2 Renal/ Medical History: Denies: Hx Peritoneal Dialysis GI Medical History: Reports: Hx Gastroesophageal Reflux Disease. Denies: Hx Hepatitis, Hx Hiatal Hernia, Hx Ulcer Musculoskeletal Medical History: Reports Hx Arthritis - RIGHT BIG TOE & HANDS, POSS rheumatoid Psychiatric Medical History: Reports: Hx Depression Infectious Medical History: Denies: Hx Hepatitis Past Surgical History: Reports: Hx Appendectomy, Hx Cardiac Catheterization, Hx Cholecystectomy, Hx Hysterectomy, Hx Orthopedic Surgery, Hx Tonsillectomy. Denies: Hx Mastectomy, Hx Open Heart Surgery, Hx Pacemaker - Immunizations Hx Diphtheria, Pertussis, Tetanus Vaccination: Yes Hx Pneumococcal Vaccination: 05/22/11 Review of Systems - Review of Systems Constitutional: denies: Chills, Fever Cardiovascular: Palpitations. denies: Chest pain Respiratory: denies: Cough, Hemoptysis -: Yes All other systems reviewed and negative Physical Exam - Vital signs Vitals: Temp Pulse Resp BP Pulse Ox 98.0 F 64 16 119/61 97 03/17/20 10:21 03/17/20 10:21 03/17/20 10:21 03/17/20 10:21 03/17/20 10:21 Interpretation: Normal - General General appearance: Appears well, Alert - HEENT Head: Normocephalic, Atraumatic Eyes: Normal Pupils: PERRL - Respiratory Respiratory status: No respiratory distress Chest status: Nontender Breath sounds: Normal Chest palpation: Normal - Cardiovascular Rhythm: Regular Heart sounds: Normal auscultation Murmur: No - Abdominal Inspection: Normal Distension: No distension Bowel sounds: Normal Tenderness: Nontender Organomegaly: No organomegaly - Back Back: Normal, Nontender - Extremities General upper extremity: Normal inspection, Nontender, Normal color, Normal ROM, Normal temperature General lower extremity: Normal inspection, Nontender, Normal color, Normal ROM, Normal temperature, Normal weight bearing. No: Shannon's sign - Neurological Neuro grossly intact: Yes Cognition: Normal Orientation: AAOx4 [place] Coma Scale Eye Opening: Spontaneous Jen Coma Scale Verbal: Oriented [place] Coma Scale Motor: Obeys Commands Jen Coma Scale Total: 15 Speech: Normal Motor strength normal: LUE, RUE, LLE, RLE Sensory: Normal - Psychological Associated symptoms: Normal affect, Normal mood - Skin Skin Temperature: Warm Skin Moisture: Dry Skin Color: Normal Course - Vital Signs Vital signs: Temp Pulse Resp BP Pulse Ox 98.0 F 64 19 120/58 L 94 03/17/20 11:25 03/17/20 10:21 03/17/20 12:01 03/17/20 12:01 03/17/20 12:01 - Laboratory Result Diagrams: 03/17/20 11:35 03/17/20 11:35 Laboratory results interpreted by me: 03/17/20 03/17/20 11:35 11:35 MCV 77 L MCH 25.0 L RDW 16.5 H BUN 23 H Est GFR (MDRD) Non-Af 57 L Glucose 151 H - Diagnostic Test Radiology reviewed: Image reviewed, Reports reviewed - EKG Interpretation by Me EKG shows normal: Sinus rhythm Rate: Normal - 67 Rhythm: NSR [place]/QRS: LAHB/LAFB Discharge - Discharge Clinical Impression: Palpitations Condition: Stable Disposition: HOME, SELF-CARE Instructions: COVID-19 Guidance for Persons Under Investigation, Palpitations (Irregular or Rapid Heartrate) ([facility]) Referrals: MAICO VALLEJO MD [Primary Care Provider] - Follow up in 3-5 days
[2020-03-17 14:05] VITALS: BP 119/56
== END 2020-03-17 14:23 | disposition home or self-care (01) ==
LOC: ER 10:03
DX: R00.2 Palpitations (principal); R07.9 Chest pain, unspecified; I48.91 Unspecified atrial fibrillation; I10 Essential (primary) hypertension; E11.9 Type 2 diabetes mellitus without complications; Z88.2 Allergy status to sulfonamides
CPT/HCPCS: 36415; 71045; 80053; 82550; 82553; 83735; 84484; 85025; 93005; 93010; 99285